=== PATIENT | male | born 1965 | race Caucasian/White ===

== ENCOUNTER → 2017-09-13 08:11 | Outpatient (CLI) | payer OTHER, SELFPAY ==
[2017-09-13 10:22] LABS: Hemoglobin A1C 9.9 % (0.0-7.0)
[2017-09-13 10:33] LABS: Alanine Aminotransferase 39 U/L (12-78); Albumin Level 4.1 gm/dL (3.4-5.0); Albumin/Globulin Ratio 1.6 (1.1-1.8); Alkaline Phosphatase 71 U/L (46-116); Anion Gap 13.5 mEq/L (5-15); Aspartate Amino Transferase 20 U/L (15-37); Bilirubin,Total 0.6 mg/dL (0.2-1.0); Blood Urea Nitrogen 13 mg/dL (7-18); Calcium 8.9 mg/dL (8.5-10.1); Carbon Dioxide 28 mmol/L (21.0-32.0); Chloride 104 mmol/L (98-107); Chol/HDL Ratio 4.8 (1-3.5); Cholesterol 177 mg/dL (140-200); Creatinine,Serum 0.81 mg/dL (0.70-1.30); Estimated Glomerular Filt Rate > 60 ml/min (>60); GFR (African American) > 60 ML/MIN (>60); Globulin 2.5 gm/dl (1.3-3.2); Glucose 248 mg/dL (74-106); HDL Cholesterol 37 mg/dL (27-67); LDL Cholesterol 90 mg/dL (0-130); Potassium 4.5 mmoL/L (3.5-5.1); Sodium 141 mmol/L (136-145); Total Protein,Serum 6.6 gm/dL (6.4-8.2); Triglycerides 250 mg/dL (30-200); VLDL Cholesterol 50 mg/dL (0-40)
[2017-09-16 13:37] LABS: Vitamin D 25 Hydroxy 18.4 ng/mL (30.0-100.0)
== END ==
PROVIDERS: PCP Physician Assistant; Visit Provider Physician Assistant
DX: E11.9 Type 2 diabetes mellitus without complications (principal); I10 Essential (primary) hypertension; E55.9 Vitamin D deficiency, unspecified; E78.2 Mixed hyperlipidemia
CPT/HCPCS: 36415; 80053; 80061; 82652; 83036

== ENCOUNTER → 2018-06-09 14:11 | Outpatient (CLI) | payer OTHER, SELFPAY ==
--- NOTE | 2018-06-09 14:22 | US_ITS ---
US scrotum HISTORY: Scrotal abscess ITS.REASON: ACROTAL ABSCESS ORDERING PHYSICIAN: Saurav Moya MD PATIENT AGE: 53 years Comparison: None FINDINGS: The right testicle has an unremarkable appearance at 4.5 x 2.7 x 3 cm. Blood flow is present. No testicular mass. The epididymis has an unremarkable appearance. The left testicle measures 5.3 x 2.7 x 3.7 cm and has an unremarkable appearance. No mass evident. There is blood flow. Unremarkable appearing epididymis. There is a palpable abnormality superior scrotal region on the right in the subcutaneous region. This measures approximately 1.8 x 1.5 cm and demonstrates heterogeneous echogenicity with small amount of fluid/edema adjacent to this area. This may represent a scrotal carbuncle/small abscess. IMPRESSION: 1. Focal subcutaneous heterogeneous area of echogenicity corresponding to the palpable abnormality in the superior right scrotal region suggesting a scrotal carbuncle/small abscess 2. Unremarkable appearing testicles
== END ==
PROVIDERS: PCP Family Medicine; Visit Provider Family Medicine
DX: N49.2 Inflammatory disorders of scrotum (principal)
CPT/HCPCS: 76870

== ENCOUNTER → 2018-06-10 14:57 | Outpatient (CLI) | payer OTHER, SELFPAY ==
[2018-06-10 15:21] LABS: Basophils # 0.1 K/mm3 (0-0.2); Basophils % 0.8 % (0.1-2.0); Eosinophils # 0.4 K/mm3 (0.0-0.4); Eosinophils % 4.7 % (0.1-12.0); Hemoglobin 13.6 g/dL (14.1-18.0); Lymphocytes # 2.5 K/mm3 (0.7-4.5); Lymphocytes % 33.9 K/mm3 (10-50); Mean Corpuscular HGB Conc 33.1 g/dL (31.8-35.4); Mean Corpuscular Hemoglobin 27.4 pg (27.0-31.2); Mean Corpuscular Volume 82.8 fl (80-94); Mean Platelet Volume 7.1 fl (7.4-10.4); Monocytes # 0.4 K/mm3 (0.1-1.0); Monocytes % 5.6 % (1.7-9.3); Neutrophils # 4.1 K/mm3 (1.8-7.8); Platelet Count 266 K/mm3 (142-424); Red Blood Count 4.95 M/mm3 (4.60-6.20); Red Cell Distribution Width 12.7 % (11.5-17.5); White Blood Count 7.4 K/mm3 (4.8-10.8)
[2018-06-10 16:16] LABS: Anion Gap 10.8 mEq/L (5-15); Blood Urea Nitrogen 15 mg/dL (7-18); Calcium 9.5 mg/dL (8.5-10.1); Carbon Dioxide 30 mmol/L (21.0-32.0); Chloride 103 mmol/L (98-107); Creatinine,Serum 0.92 mg/dL (0.70-1.30); Estimated Glomerular Filt Rate 86 ml/min (>60); GFR (African American) 104 ML/MIN (>60); Glucose 200 mg/dL (74-106); Potassium 4.8 mmoL/L (3.5-5.1); Sodium 139 mmol/L (136-145)
== END ==
PROVIDERS: PCP Family Medicine; Visit Provider Surgery
DX: N49.2 Inflammatory disorders of scrotum (principal)
CPT/HCPCS: 36415; 80048; 85025; 93005

== ENCOUNTER → 2019-02-05 13:11 | Outpatient (CLI) | payer OTHER, SELFPAY ==
--- NOTE | 2019-02-05 13:14 | CA_ITS ---
PROCEDURE: 2-D M-mode and color Doppler study INDICATIONS FOR THE TEST: Chest pain + COPD Heart Murmur+ Tobacco Smoking Palpitations Fatigue Syncope Edema Hypertension+Diabetes Mellitus+ Rheumatic Fever SOB+TORRES Obesity Hyperlipidemia+ Family History HD Additional History CAD,GERD,STENTS PATIENT INFORMATION HEIGHT: 71 WEIGHT:246 GENDER: Male B/P:117/93 2-D/M-MODE INTERPRETATION: 2-D MEASUREMENTS OBSERVED VALUES IN CMS Right Ventricular Dimension (RVDd) 3.2 Interventricular Septum (Thickness)(IVsd) 1.2 Left Ventricular Internal Dimensions(LVIDd) 5.1 Left Ventricular Posterior Wall (Thickness)(LVPWd) 1.2 Aortic Root 2.8 Aortic Cusp Separation 1.3 Left Atrial Dimensions (LAD) 3.4 2D 1. Left atrium is mildly enlarged, left ventricle is normal size, mild concentric left ventricular hypertrophy, visually estimated ejection fraction 55% with no regional wall motion abnormality. 2. The right atrium and right ventricle are mildly enlarged with normal contractility. 3. The aortic valve is thickened and gastritis leaflet continue to display mobility. 4. The mitral and tricuspid valve leaflets are minimally thickened. 5. The pulmonic valve is poorly visualized. 6. No significant pericardial effusion noted. DOPPLER INTERROGATION: Doppler interrogation of the aortic, mitral and tricuspid valvular presence of mild mitral and tricuspid regurgitation, tricuspid regurgitation jet velocity is inadequate for calculation of the right ventricular systolic pressure, grade 1 diastolic dysfunction seen without tissue Doppler evidence of raised left atrial pressure. CONCLUSION: 1. Mild biatrial enlargement, normal left ventricular size, mild concentric left ventricular hypertrophy, visually estimated ejection fraction 55% with no regional wall motion abnormality, grade 1 diastolic dysfunction seen without tissue Doppler evidence of raised left atrial pressure. 2. Mildly enlarged right ventricle with normal contractility. 3. Mild mitral and tricuspid regurgitation 4. No significant pericardial effusion noted.
== END ==
PROVIDERS: PCP Family Medicine; Visit Provider Internal Medicine
DX: I25.10 Atherosclerotic heart disease of native coronary artery without angina pectoris (principal); R06.02 Shortness of breath
CPT/HCPCS: 93306

== ENCOUNTER → 2019-03-13 08:03 | Outpatient (CLI) | payer OTHER, SELFPAY ==
[2019-03-13 09:10] LABS: Hemoglobin A1C 9.9 % (0.0-7.0)
[2019-03-13 14:37] LABS: Alanine Aminotransferase 35 U/L (12-78); Albumin Level 3.8 gm/dL (3.4-5.0); Albumin/Globulin Ratio 1.4 (1.1-1.8); Alkaline Phosphatase 61 U/L (46-116); Anion Gap 13.4 mEq/L (5-15); Aspartate Amino Transferase 14 U/L (15-37); Bilirubin,Total 0.7 mg/dL (0.2-1.0); Blood Urea Nitrogen 19 mg/dL (7-18); Calcium 8.6 mg/dL (8.5-10.1); Carbon Dioxide 26 mmol/L (21.0-32.0); Chloride 105 mmol/L (98-107); Cholesterol 151 mg/dL (140-200); Creatinine,Serum 0.84 mg/dL (0.70-1.30); Estimated Glomerular Filt Rate 96 ml/min (>60); GFR (African American) 116 ML/MIN (>60); Globulin 2.7 gm/dl (1.3-3.2); Glucose 257 mg/dL (74-106); HDL Cholesterol 30 mg/dL (27-67); LDL Cholesterol 49 mg/dL (0-130); Potassium 4.4 mmoL/L (3.5-5.1); Prostate Specific Ag Screen 2.2 ng/mL (0.0-4.0); Sodium 140 mmol/L (136-145); Total Protein,Serum 6.5 gm/dL (6.4-8.2); Triglycerides 358 mg/dL (30-200); VLDL Cholesterol 72 mg/dL (0-40)
== END ==
PROVIDERS: Visit Provider Physician Assistant
DX: E78.2 Mixed hyperlipidemia (principal); E11.9 Type 2 diabetes mellitus without complications; E55.9 Vitamin D deficiency, unspecified; I10 Essential (primary) hypertension; Z12.5 Encounter for screening for malignant neoplasm of prostate; Z79.84 Long term (current) use of oral hypoglycemic drugs
CPT/HCPCS: 36415; 80053; 80061; 82652; 83036; G0103

== ENCOUNTER → 2019-04-26 16:15 | Outpatient (CLI) | payer OTHER, SELFPAY ==
--- NOTE | 2019-04-26 16:21 | XR_ITS ---
PROCEDURE: XR LUMBAR SPINE MIN 4V CLINICAL INDICATION: SCIATICA OF LT SIDE COMPARISON: LS5 LUMBAR SPINE 5 VIEWS from 10/04/2014 FINDINGS: Normal alignment. No fracture or dislocation. Scattered endplate osteophytes. Generalized vascular calcification. IMPRESSION: No acute finding with no change from 10/04/2014 Dictated by: Mk Bal MD 04/26/2019 19:20 Signed by: <Electronically signed by Mk Bal MD in [place]> 04/26/2019 19:20
== END ==
LOC: RAD 16:16
PROVIDERS: PCP Family Medicine; Visit Provider Family Medicine
DX: M54.32 Sciatica, left side (principal)
CPT/HCPCS: 72110

== ENCOUNTER → 2019-07-03 09:02 | Outpatient (CLI) | payer OTHER, SELFPAY ==
[2019-07-03 10:32] LABS: Hemoglobin A1C 10.7 % (0.0-7.0)
[2019-07-03 10:45] LABS: Alanine Aminotransferase 28 U/L (12-78); Albumin Level 3.9 gm/dL (3.4-5.0); Albumin/Globulin Ratio 1.3 (1.1-1.8); Alkaline Phosphatase 70 U/L (46-116); Anion Gap 11.5 mEq/L (5-15); Aspartate Amino Transferase 9 U/L (15-37); Bilirubin,Total 0.6 mg/dL (0.2-1.0); Blood Urea Nitrogen 13 mg/dL (7-18); Carbon Dioxide 27 mmol/L (21.0-32.0); Chloride 101 mmol/L (98-107); Chol/HDL Ratio 6.4 (1-3.5); Cholesterol 198 mg/dL (140-200); Creatinine,Serum 0.78 mg/dL (0.70-1.30); Estimated Glomerular Filt Rate 104 ml/min (>60); GFR (African American) 126 ML/MIN (>60); Glucose 293 mg/dL (74-106); HDL Cholesterol 31 mg/dL (27-67); Potassium 4.5 mmoL/L (3.5-5.1); Sodium 135 mmol/L (136-145); Total Protein,Serum 6.9 gm/dL (6.4-8.2)
[2019-07-03 10:48] LABS: Triglycerides 457 mg/dL (30-200)
[2019-07-06 12:55] LABS: Vitamin D 25 Hydroxy 17.9 ng/mL (30.0-100.0)
== END ==
LOC: LAB 09:02
PROVIDERS: Visit Provider Physician Assistant
DX: E78.2 Mixed hyperlipidemia (principal); E55.9 Vitamin D deficiency, unspecified; I10 Essential (primary) hypertension; E11.9 Type 2 diabetes mellitus without complications
CPT/HCPCS: 36415; 80053; 80061; 82652; 83036

== ENCOUNTER → 2019-11-17 10:13 | Outpatient (CLI) | payer OTHER, SELFPAY ==
--- NOTE | 2019-11-17 10:17 | XR_ITS ---
PROCEDURE: XR CHEST 2V CLINICAL HISTORY: RT RIB CONTUSION Pain, injury with pain COMPARISON: CXR CHEST(2 VIEWS-NOT PORTABLE) from 10/04/2014 FINDINGS: The cardiomediastinal silhouette and pulmonary vascularity are within normal limits. The lungs are clear without infiltrates, suspicious nodules, or pleural effusions. Mild degenerative changes in the thoracic spine IMPRESSION: No acute findings. Dictated by: Mk Bal MD 11/17/2019 12:09 Electronically signed by Mk Bal MD in [place] 11/17/2019 12:09
--- NOTE | 2019-11-17 10:17 | XR_ITS ---
PROCEDURE: XR RIBS RT 2V CLINICAL INDICATION: RT RIB CONTUSION Right-sided rib pain following injury COMPARISON: XR CHEST 2V from 11/17/2019 FINDINGS: No fracture or dislocation. No lytic or blastic change. Consider follow-up exam in 7-[address] with 3D reformats if pain persists IMPRESSION: No acute findings. Dictated by: Mk Bal MD 11/17/2019 12:09 Electronically signed by Mk Bal MD in [place] 11/17/2019 12:09
== END ==
LOC: RAD 10:15
PROVIDERS: PCP Family Medicine; Visit Provider Family Medicine
DX: S20.211A Contusion of right front wall of thorax, initial encounter (principal)
CPT/HCPCS: 71046; 71100

== ENCOUNTER → 2020-02-09 06:43 | Outpatient (CLI) | payer OTHER, SELFPAY ==
--- NOTE | 2020-02-09 06:44 | CA_ITS ---
APPROVED REPORT EXAM: Comprehensive 2D, Doppler, and color-flow Echocardiogram Emergency Medical Tech: Jeanne White RVT Ht: 5 ft 11 in Wt: 257lbs BSA: 2.35 BP: 136/83 mmHg Indications: CP,SOA,CAD,STENTS,HLD,HTN 2D Dimensions LVOT 2.23 cm (M/F) 1.5-2.5 M-Mode Dimensions RVDd 2.73 cm (0.9-2.6) LVDd 4.86 cm (3.5-5.7) LVDs 3.30 cm (3.5-5.7) IVSd 1.48 cm (0.6-1.1) PWd 0.83 cm (0.6-1.1) EF (Teich) 60.20% FS 32.10% EDV (Teich) 110.70 mL ESV (Teich) 44.10 mL LV Diastology E/A Ratio 1.16 Mitral Valve MV A Velocity 72.00 (40-130 cm/s) Left Ventricle Left atrium is mildly enlarged, left ventricle is normal size, mild concentric left ventricular hypertrophy, visually estimated ejection fraction 55% with no regional wall motion abnormality. Diastolic parameters are inconclusive. Right Ventricle Right atrium and right ventricle are mildly enlarged with normal contractility. Aortic Valve Aortic valve is minimally thickened and fibrosed, there is no aortic stenosis or aortic insufficiency. Mitral Valve Mitral valve is grossly normal, there is no mitral stenosis, there is mild mitral regurgitation. Tricuspid Valve Tricuspid valve is grossly normal, there is mild tricuspid regurgitation. Pulmonic Valve Pulmonic valve is poorly visualized. Great Vessels Root is normal size. Pericardium No significant pericardial effusion noted. Conclusion 1. Mild biatrial enlargement, normal left ventricular size, mild concentric left ventricular hypertrophy, visually estimated ejection fraction 55% with no regional wall motion abnormality, diastolic parameters are inconclusive. 2. Mildly enlarged right ventricle with normal contractility. 3. Mild mitral and tricuspid regurgitation. 4. No significant pericardial effusion noted. Electronically signed by : Brenton Orozco, 02/10/2020 11:41:16
--- NOTE | 2020-02-09 06:44 | CA_ITS ---
APPROVED REPORT Exam: Exercise Treadmill Technologist: Anushka Restrepo, Ht: 5 ft 11 in Wt: 255 lbs BSA: 2.34 m2 BP: 132/82 mmHg Indications: Chest pain Medical History Medications: Lipitor, Carvedilol, Combivent, Hydroxyzine, Baclofen, Metformin, Gabapentin, Nitro, Tramadol, Isosorbide, Asa Allergies: Levofloxacin Cardiac Risk Factors: HTN, Hyperlipidemia, Diabetes (non-insulin) Stress Test Details Test: Alejandro HR Resting HR: 91 bpm Max Heart Rate (APMHR): 166 bpm Max HR Achieved: 155 bpm Target HR (85% APMHR): 141 bpm % of APMHR: 93 Recovery HR: 136 bpm BP Resting BP: 132/82 mmHg Max BP: 187/94 mmHg Recovery BP: 152.0/78.0 mmHg ECG Resting ECG: NSR Clinical Exercise duration: 08:31 min Highest Stage Achieved: Stage 3: 3.4 mph at 14% grade. Exercise capacity: 10.1 METs Stress ECG Conclusion C/O chest pressure radiating to left scapula. Rare PVC. 0.5-0.75mm of horizontal and slightly upsloping ST depression inferiorly. CP with exercise. within normal EKG. Images reported separtely. Test Summary REST . . . . . . . Resting REST . . . . . . . Standing REST 02:54 0.0 0.0 91 . 132/ 82 . . Stage 1 01:00 10.0 1.7 110 . . . . Stage 1 02:00 10.0 1.7 119 . . . . Stage 1 03:00 10.0 1.7 120 . 154/ 80 . . Stage 2 01:00 12.0 2.5 124 . . . . Stage 2 02:00 12.0 2.5 128 . . . . Stage 2 03:00 12.0 2.5 132 . 164/ 80 . . Stage 3 01:00 14.0 3.4 141 . . . . Stage 3 . . . . . . . Cardiolite injected Stage 3 02:00 14.0 3.4 149 . . . . Stage 3 . . . . . . . chest tightness Stage 3 02:31 14.0 3.4 152 . . . Stop exercise at 08:31 RECOVERY 01:00 0.0 0.0 136 . . . . RECOVERY 02:00 0.0 0.0 112 . . . . RECOVERY 03:00 0.0 0.0 101 . 187/ 94 . . RECOVERY 04:00 0.0 0.0 100 . 152/ 78 . . RECOVERY 05:00 0.0 0.0 98 . 152/ 78 . . RECOVERY 06:00 0.0 0.0 98 . 145/ 74 . . RECOVERY 06:01 0.0 0.0 98 . 145/ 74 . . Electronically signed by : Brenton Orozco, 02/10/2020 09:31:49
--- NOTE | 2020-02-09 06:44 | NM_ITS ---
APPROVED REPORT Exam: Nuclear Stress Test Indication: Chest pain, SOB, HTN, CAD, DM, High cholesterol, Former tobacco use, Family history Patient Location: Outpatient Stress Tech: Anushka Restrepo [place] Tech:Avril Wright, ARRT, RT (R)(N) Ht: 5 ft 11 in Wt: 250 lbs HR: 79 bpm BP: 132/82 mmHg BSA: 2.32 m2 BMI: 34.8 History: Chest pain, SOB, HTN, CAD, DM, High cholesterol, Former tobacco use, Family history Procedure: Patient exercised on Alejandro protocol 7:30 minutes and sec, resting heart rate 79 bpm, resting blood pressure 132/82 mmHg, with exercise maximum heart rate achived was 152 bpm which is Greater than 85 % of the maximum predicted heart rate and blood pressure was 187/94 mmHg. Test was stopped due to SOA and fatigue. Patient has Good exercise capacity, achieved 10.1 METs of workload on treadmill, the blood pressure response to exercise was Adequate. Electrocardiogram Resting electrocardiogram showed sinus rhythm, with exercise there is less than 1.[address] segment depression noted from the baseline EKG. The EKG portion of the exercise Myoview is negative for ischemia. Cardiac Stress and Resting SPECT Images: Cardiac Stress and Resting SPECT images were obtained using technetium 99m Myoview 31.8 mCi stress and 10.21 mCi at rest. Gated SPECT with analysis of segmental wall motion and calculation of ejection fraction also done. Cardiac stress and resting SPECT images show uniform myocardial activity without segmental perfusion abnormality, computer derived ejection fraction is 62% with no regional wall motion abnormality, right ventricle is normal size and contractility. Conclusion: 1. The EKG portion of the exercise Myoview is negative for ischemia, patient has good exercise capacity achieved 10.1 mets of workload on treadmill, the blood pressure response to exercise was adequate, test was stopped due to shortness of breath and chest tightness. 2. No scintigraphic evidence of reversible ischemia seen at this level of exercise, computer derived ejection fraction is 62% with no regional wall motion abnormality, right ventricle is normal size and contractility. 3. Myocardial perfusion imaging although patient complained of chest tightness with peak exercise relieved with rest, there were no significant EKG changes or perfusion imaging to suggest provokable ischemia. Electronically signed by : Brenton Orozco 02/10/2020 09:36:10
--- NOTE | 2020-02-09 07:08 | HMH.ITSHM ---
Current Home Medications as stated by this patient Yanet Calle or mechanical service representative. [TRAMADOL NITRO METFORMIN ISOSOROBIDE IPRATROPIUM INSULIN ASA HYDROXYZINE GABAPENTIN COENZYME CARVEDILOL BACLOFEN ATORVASTATIN
== END ==
PROVIDERS: PCP Family Medicine; Visit Provider Urology
DX: I20.9 Angina pectoris, unspecified (principal); R06.02 Shortness of breath; E78.5 Hyperlipidemia, unspecified; I10 Essential (primary) hypertension
CPT/HCPCS: 78452; 93017; 93306; A9502

== ENCOUNTER → 2020-03-28 13:32 | Outpatient (CLI) | payer OTHER, SELFPAY ==
--- NOTE | 2020-03-28 13:37 | US_ITS ---
PROCEDURE: US KIDNEY CLINICAL INDICATION: FLANK PAIN COMPARISON: No exams were available for comparison FINDINGS: The right kidney is [id number]. No hydronephrosis, cortical thinning, or renal mass or perinephric fluid collection is evident. The left kidney is [id number]. No hydronephrosis, cortical thinning, or renal mass or perinephric fluid collection is evident. IMPRESSION: Unremarkable bilateral renal ultrasound Dictated by: Mk aBl MD 03/28/2020 14:32 Electronically signed by Mk Bal MD in [place] 03/28/2020 14:32
== END ==
LOC: RAD 13:33
PROVIDERS: PCP Family Medicine; Visit Provider Family Medicine
DX: R10.9 Unspecified abdominal pain (principal)
CPT/HCPCS: 76770

== ENCOUNTER → 2021-01-13 10:30 | Outpatient (CLI) | payer OTHER, SELFPAY | PROVIDERS: Visit Provider Internal Medicine Pulmonary Disease | DX: R06.02 Shortness of breath (principal) ==

== ENCOUNTER 2021-05-09 07:50 | Outpatient (CLI) | payer OTHER, SELFPAY ==
[2021-05-09] VITALS (7 sets, daily range): BP systolic 113–122; BP diastolic 72–86; PULSE 84–88; RESP 18–20; TEMP 36.9–37; O2SAT 93–95
== END 2021-05-09 10:16 | disposition home or self-care (01) ==
PROVIDERS: PCP Family Medicine; Visit Provider Family Medicine
DX: U07.1 COVID-19 (principal)
CPT/HCPCS: 96365

== ENCOUNTER → 2021-07-30 07:41 | Outpatient (CLI) | payer OTHER, SELFPAY ==
[2021-07-30 08:45] LABS: Alanine Aminotransferase 16 U/L (12-78); Albumin Level 4.4 g/dl (3.5-5.0); Alkaline Phosphatase 86 U/L (38-126); Aspartate Amino Transferase 20 U/L (17-59); Bilirubin,Direct 0.3 mg/dl (0.0-0.4); Bilirubin,Indirect 0.3 mg/dL (0.0-0.9); Bilirubin,Total 0.6 mg/dl (0.2-1.3); Bilirubin,Unconjugated 0.3 mg/dL (0.0-1.1); Chol/HDL Ratio 6.9 (1-3.5); Cholesterol 199 mg/dl (140-200); HDL Cholesterol 29 mg/dl (40-60); Total Protein,Serum 6.8 g/dl (6.3-8.2)
[2021-07-30 08:54] LABS: Triglycerides 1217 mg/dl (30-150)
[2021-07-30 08:56] LABS: Direct LDL Cholesterol 33.38 mg/dL (100-129)
== END ==
LOC: LAB 07:44
PROVIDERS: Visit Provider Urology
DX: R06.02 Shortness of breath (principal); R07.9 Chest pain, unspecified; I20.9 Angina pectoris, unspecified; I10 Essential (primary) hypertension; E78.5 Hyperlipidemia, unspecified; F32.9 Major depressive disorder, single episode, unspecified
CPT/HCPCS: 36415; 80061; 80076

== ENCOUNTER → 2021-07-31 07:14 | Outpatient (CLI) | payer OTHER, SELFPAY ==
[2021-07-31 09:03] LABS: Alanine Aminotransferase 9 U/L (12-78); Albumin Level 4.5 g/dl (3.5-5.0); Albumin/Globulin Ratio 1.7 (1.1-1.8); Alkaline Phosphatase 83 U/L (38-126); Anion Gap 11.2 mEq/L (5-15); Aspartate Amino Transferase 21 U/L (17-59); Bilirubin,Total 0.5 mg/dl (0.2-1.3); Blood Urea Nitrogen 17 mg/dl (9-20); Calcium 9.6 mg/dl (8.4-10.2); Carbon Dioxide 30 mmol/L (22.0-30.0); Chloride 104 mmol/L (98-107); Chol/HDL Ratio 6.9 (1-3.5); Cholesterol 201 mg/dl (140-200); Estimated Glomerular Filt Rate 100 ml/min (>60); GFR (African American) 121 ML/MIN (>60); Globulin 2.6 g/dL (1.3-3.2); Glucose 295 mg/dl (74-100); HDL Cholesterol 29 mg/dl (40-60); Potassium 5.2 mmoL/L (3.5-5.1); Sodium 140 mmol/L (136-145); Total Protein,Serum 7.1 g/dl (6.3-8.2)
[2021-07-31 09:11] LABS: Triglycerides 1384 mg/dl (30-150)
[2021-07-31 09:15] LABS: Direct LDL Cholesterol < 30.00 mg/dL (100-129)
[2021-07-31 09:33] LABS: Prostate Specific Ag Screen 1.7 ng/ml (0.0-4.0)
== END ==
LOC: LAB 07:15
PROVIDERS: Visit Provider Family Medicine
DX: I10 Essential (primary) hypertension (principal); E11.9 Type 2 diabetes mellitus without complications; E78.49 Other hyperlipidemia; Z12.5 Encounter for screening for malignant neoplasm of prostate; Z79.4 Long term (current) use of insulin
CPT/HCPCS: 36415; 80053; 80061; G0103

== ENCOUNTER → 2021-11-09 07:24 | Outpatient (CLI) | payer OTHER, SELFPAY ==
--- NOTE | 2021-11-09 07:50 | XR_ITS ---
FINAL REPORT CLINICAL HISTORY: CHEST PAIN COMPARISON: 11/17/2019 FINDINGS: Two views of the chest were obtained. The heart size and pulmonary vascularity are within normal limits. The mediastinum is normal. No acute pulmonary abnormality is identified. There is no pneumothorax. The bony thorax is intact. IMPRESSION: No active cardiopulmonary disease. Reviewed, Interpreted and Dictated by Keith Dickey III, MD Transcribed by Heather Cheema Authenticated by Keith Dickey III, MD on 11/09/2021 08:46:40 AM [facility]
[2021-11-09 08:29] LABS: Hemoglobin A1C 8.4 % (4.0-6.0)
[2021-11-09 08:42] LABS: Alanine Aminotransferase 20 U/L (12-78); Albumin Level 4.3 g/dl (3.5-5.0); Alkaline Phosphatase 71 U/L (38-126); Anion Gap 9.8 mEq/L (5-15); Aspartate Amino Transferase 21 U/L (17-59); Bilirubin,Total 0.7 mg/dl (0.2-1.3); Blood Urea Nitrogen 13 mg/dl (9-20); Calcium 9.3 mg/dl (8.4-10.2); Carbon Dioxide 30 mmol/L (22.0-30.0); Chloride 104 mmol/L (98-107); Chol/HDL Ratio 4.4 (1-3.5); Cholesterol 146 mg/dl (140-200); Estimated Glomerular Filt Rate 100 ml/min (>60); GFR (African American) 121 ML/MIN (>60); Globulin 2.2 g/dL (1.3-3.2); Glucose 250 mg/dl (74-100); HDL Cholesterol 33 mg/dl (40-60); Potassium 4.8 mmoL/L (3.5-5.1); Sodium 139 mmol/L (136-145); Total Protein,Serum 6.5 g/dl (6.3-8.2)
[2021-11-09 08:59] LABS: 25-OH Vitamin D, Total 23.4 ng/mL (30-100)
[2021-11-09 09:32] LABS: Triglycerides 453 mg/dl (30-150)
== END ==
LOC: RAD 07:29
PROVIDERS: PCP Physician Assistant; Visit Provider Physician Assistant
DX: R07.9 Chest pain, unspecified (principal); I10 Essential (primary) hypertension; E11.9 Type 2 diabetes mellitus without complications; E78.2 Mixed hyperlipidemia; E55.9 Vitamin D deficiency, unspecified; Z79.4 Long term (current) use of insulin
CPT/HCPCS: 36415; 71046; 80053; 80061; 82306; 83036

== ENCOUNTER → 2021-11-19 06:16 | Outpatient (CLI) | payer OTHER, SELFPAY ==
--- NOTE | 2021-11-19 | CA_ITS ---
APPROVED REPORT Exam: Pharmacologic Technologist: Loli Mariee Ht: 5 ft 1 in Wt: 240 lbs BSA: 2.04 m2 HR: 79 bpm BP: 129/86 mmHg Indications: Chest pain Medical History Medications: Aspirin,,,,, Fish Oil,,,,, Vitamin D3,,,,, Atorvastatin,,,,, Carvedilol,,,,, Tramadol,,,,, FeNOfibrate,,,,, Baclofen,,,,, Sertraline,,,,, Co Q10,,,,, Resuvastatin,,,,, EMpagliflozin,,,,, Stress Test Details Test: LEXISCAN HR Resting HR: 80 bpm Max Heart Rate (APMHR): 164.456786 bpm Max HR Achieved: 98 bpm Target HR (85% APMHR): 139.703328 bpm % of APMHR: 59.76 Recovery HR: 81 bpm BP Resting BP: 129.0/86.0 mmHg Max BP: 143.0/86.0 mmHg Recovery BP: 127.0/83.0 mmHg ECG Clinical Exercise duration: 04:01 min Highest Stage Achieved: Exercise capacity: 1.0 METs Stress ECG Conclusion Symptoms: Shortness of air with Lexiscan. Nausea noted. Arrhythmias/Ectopy: None ST-T Changes: < 1.[address] segment changes. Electronically signed by : Brenton Orozco MD 11/19/2021 19:02:30
--- NOTE | 2021-11-19 06:25 | NM_ITS ---
APPROVED REPORT Exam: Nuclear Stress Test Indication: Chest pain, SOB, CAD, HTN, DM, High cholesterol, Former tobacco use, Family history Patient Location: Outpatient Stress Tech: Loli Mariee [place] Tech:Avril Wright, ARRT, RT (R)(N) Ht: 5 ft 11 in Wt: 240 lbs HR: 79 bpm BP: 129/86 mmHg BSA: 2.28 m2 BMI: 33.4 History: Chest pain, SOB, CAD, HTN, DM, High cholesterol, Former tobacco use, Family history Procedure: Patient received a 0.4 mg of intravenous Lexiscan, resting heart rate 79 bpm, resting blood pressure 129/86 mmHg, with Lexiscan maximum heart rate achived was 93 bpm which is Less than 85 % of the maximum predicted heart rate and blood pressure was 143/86 mmHg. With Lexiscan, patient denied any complaint of chest pain. Electrocardiogram Electrocardiogram shows sinus rhythm, with Lexiscan there is less than 1.[address] segment depression noted from the baseline EKG. The EKG portion of the Lexiscan is nondiagnostic. Cardiac Stress and Resting SPECT Images: Cardiac Stress and Resting SPECT images were obtained using technetium 99m Myoview 31.2 mCi stress and 10.83 mCi at rest. Gated SPECT for analysis of segmental wall motion and calculation of the ejection fraction also done. Cardiac stress and rest SPECT may show mild fixed defect in the anterior wall with normal raghu gated SPECT is likely secondary to soft tissue attenuation, no reversible ischemia seen, computer derived ejection fraction is 61% with no regional wall motion abnormality, right ventricle is normal size and contractility. Conclusion: 1. The EKG portion of the Lexiscan is nondiagnostic. 2. No scintigraphic evidence of reversible ischemia seen, computer derived ejection fraction is 61% with no regional wall motion abnormality, right ventricle is normal size and contractility. 3. Likely normal Lexiscan Myoview study. Electronically signed by : Brenton Orozco MD 11/19/2021 19:12:31
--- NOTE | 2021-11-19 08:12 | CA_ITS ---
APPROVED REPORT EXAM: Comprehensive 2D, Doppler, and color-flow Echocardiogram Child Life Therapist: Jeanne White RVT Ht: 5 ft 11 in Wt: 240lbs BSA: 2.28 BP: 134/76 mmHg Indications: SOA,CP,CAD,HX COVID 05/29,HTN,HLD TDS 2D Dimensions LVOT 2.22 cm (M/F) 1.5-2.5 LA Volume 28.40 mL LA Volume Index 12.45 mL/m2 (M/F) 16-34 M-Mode Dimensions RVDd 2.97 cm (0.9-2.6) LA Diam 3.92 cm (1.9-4.0) LVDd 4.55 cm (3.5-5.7) Ao Diam 3.07 cm (2.0-3.7) LVDs 3.14 cm (3.5-5.7) IVSd 1.57 cm (0.6-1.1) PWd 0.76 cm (0.6-1.1) EF (Teich) 58.80% FS 31.00% EDV (Teich) 94.90 mL TAPSE 2.04 (<1.7) ESV (Teich) 39.10 mL LV Diastology E Decel Time 183.00 (160-240 msec) E/A Ratio 1.2 MED E' 6.60 (< 7 cm/sec) E'/MED E' Ratio 13.47 (>14) LAT E' 11.00 (<10 cm/sec) E/LAT E' Ratio 8.08 (>14) Aortic Valve AO Peak GR. 7.00 mmHg Mitral Valve MV E Max Timi. 89.00 (40-130 cm/s) MV A Velocity 73.00 (40-130 cm/s) E/A Ratio 1.23 MV Decel. Time 183.00 (160-240 ms) MV PHT 54.00 ms Pulmonary Valve PV Peak Velocity 84.00 (50-150 cm/s) Tricuspid Valve TR P. Velocity 183.00 cm/s RAP Estimate 10.00 mmHg RVSP 23.30 mmHg Left Ventricle Atrium is mildly large, left ventricle is normal size, mild concentric left ventricular hypertrophy, visually estimated ejection fraction 55% with no regional wall motion abnormality, diastolic parameters are inconclusive. Right Ventricle Right atrium and right ventricle are mildly enlarged with normal contractility. Aortic Valve Aortic valve is minimally thickened and fibrosed, there is no aortic stenosis or aortic insufficiency. Mitral Valve Mitral valve grossly normal, there is trace mitral regurgitation. Tricuspid Valve Tricuspid grossly normal, there is trace tricuspid regurgitation, tricuspid regurgitation jet velocity is inadequate for calculation of the right ventricular systolic pressure. Pulmonic Valve Pulmonic valve is poorly visualized. Great Vessels Aortic root is normal size. Inferior vena cava is poorly visualized. Pericardium No significant pericardial effusion noted. Conclusion 1. Mild biatrial alignment, normal left ventricular size, mild concentric left ventricular hypertrophy, visually estimated ejection fraction 55% with no regional wall motion abnormality, diastolic parameters are inconclusive. 2. Mildly enlarged right ventricle with normal contractility. 3. Trace mitral and tricuspid regurgitation. 4. No significant pericardial effusion. 5. Inferior vena cava is poorly visualized. Electronically signed by : Brenton Orozco MD 11/19/2021 19:52:21
--- NOTE | 2021-11-19 08:23 | HMH.ITSHM ---
Current Home Medications as stated by this patient Yanet Calle or specialty sales representative. []TRAMADOL SERTRALINE ROSUVASTATIN RANOLAZINE OMEGA 3 NITRO ASA METFORMIN ISOSORBIDE IPRATROPIUM INSULIN HYDROXYZINE GABAPENTIN FENOFIBRATE EMPAGLIFLOZIN COQ10 VITAMIN D3 CARVEDILOL ATORVASTATIN
== END ==
LOC: RAD 06:18
PROVIDERS: PCP Physician Assistant; Visit Provider Physician Assistant
DX: R07.9 Chest pain, unspecified (principal)
CPT/HCPCS: 78452; 93017; 93306; A9502; J2785

== ENCOUNTER → 2022-02-13 08:27 | Outpatient (CLI) | payer OTHER, SELFPAY ==
--- NOTE | 2022-02-13 08:30 | XR_ITS ---
PROCEDURE INFORMATION: Exam: XR Right Hand Exam date and time: 02/13/2022 8:38 AM Age: 56 years old Clinical indication: Pain; Hand; Bilateral; Additional info: Hand pain TECHNIQUE: Imaging protocol: XR Right hand. Views: 3 or more views. COMPARISON: No relevant prior studies available. FINDINGS: Bones/joints: There is no evidence of acute fracture.There is no evidence of malalignment or dislocation. Degenerative changes in the IP joint Soft tissues: Normal. IMPRESSION: There is no evidence of acute fracture.There is no evidence of malalignment or dislocation.
--- NOTE | 2022-02-13 08:30 | XR_ITS ---
PROCEDURE INFORMATION: Exam: XR Left Hand Exam date and time: 02/13/2022 8:38 AM Age: 56 years old Clinical indication: Pain; Hand; Bilateral; Additional info: Hand pain TECHNIQUE: Imaging protocol: XR Left hand. Views: 3 or more views. COMPARISON: No relevant prior studies available. FINDINGS: Bones/joints: There is no evidence of acute fracture.There is no evidence of malalignment or dislocation. Soft tissues: Normal. IMPRESSION: There is no evidence of acute fracture.There is no evidence of malalignment or dislocation.
== END ==
LOC: RAD 08:28
PROVIDERS: PCP Family Medicine; Visit Provider Orthopaedic Surgery
DX: G56.03 Carpal tunnel syndrome, bilateral upper limbs (principal)
CPT/HCPCS: 73130

== ENCOUNTER → 2022-02-21 07:13 | Outpatient (CLI) | payer OTHER, SELFPAY ==
[2022-02-21 08:47] LABS: Chloride 104 mmol/L (98-107); Hemoglobin A1C 9.1 % (4.0-6.0); Sodium 140 mmol/L (136-145)
[2022-02-21 08:48] LABS: Potassium 5.3 mmoL/L (3.5-5.1)
[2022-02-21 08:50] LABS: Alanine Aminotransferase 25 U/L (12-78); Albumin Level 4.4 g/dl (3.5-5.0); Albumin/Globulin Ratio 1.8 (1.1-1.8); Alkaline Phosphatase 80 U/L (38-126); Anion Gap 15.3 mEq/L (5-15); Aspartate Amino Transferase 30 U/L (17-59); Bilirubin,Total 0.7 mg/dl (0.2-1.3); Blood Urea Nitrogen 16 mg/dl (9-20); Carbon Dioxide 26 mmol/L (22.0-30.0); Cholesterol 203 mg/dl (140-200); Estimated Glomerular Filt Rate 100 ml/min (>60); GFR (African American) 121 ML/MIN (>60); Globulin 2.4 g/dL (1.3-3.2); Total Protein,Serum 6.8 g/dl (6.3-8.2)
[2022-02-21 08:51] LABS: Calcium 10.5 mg/dl (8.4-10.2); Chol/HDL Ratio 5.6 (1-3.5); Glucose 298 mg/dl (74-100); HDL Cholesterol 36 mg/dl (40-60)
[2022-02-21 08:58] LABS: Triglycerides 666 mg/dl (30-150)
[2022-02-21 09:02] LABS: Direct LDL Cholesterol 50.59 mg/dL (100-129)
[2022-02-21 09:06] LABS: 25-OH Vitamin D, Total 50.1 ng/mL (30-100)
== END ==
PROVIDERS: PCP Family Medicine; Visit Provider Physician Assistant
DX: E78.2 Mixed hyperlipidemia (principal); I10 Essential (primary) hypertension; E11.9 Type 2 diabetes mellitus without complications; E55.9 Vitamin D deficiency, unspecified; Z79.84 Long term (current) use of oral hypoglycemic drugs
CPT/HCPCS: 36415; 80053; 80061; 82306; 83036

== ENCOUNTER → 2022-09-06 15:45 | Outpatient (CLI) | payer OTHER, SELFPAY ==
--- NOTE | 2022-09-06 15:54 | XR_ITS ---
PROCEDURE INFORMATION: Exam: XR Chest Exam date and time: 09/06/2022 4:17 PM Age: 57 years old Clinical indication: Cough; Additional info: Covid SX TECHNIQUE: Imaging protocol: Radiologic exam of the chest. Views: 1 view. COMPARISON: CR XR CHEST 2V 11/09/2021 7:58 AM FINDINGS: Lungs: Hazy right-sided pulmonary opacity with bronchial wall thickening. Pleural spaces: No pneumothorax. Heart/Mediastinum: No cardiomegaly. Bones/joints: No acute abnormality. IMPRESSION: Hazy right-sided pulmonary opacity with bronchial wall thickening which is nonspecific but potentially infectious or inflammatory. Follow-up to radiographic clearance is recommended.
[2022-09-06 16:47] LABS: Coronavirus 19, PCR Not Detected (NotDetected); Influenza A, PCR Not Detected (NotDetected); Influenza B, PCR Not Detected (NotDetected)
== END ==
PROVIDERS: PCP Physician Assistant; Visit Provider Physician Assistant
DX: Z20.822 Contact with and (suspected) exposure to COVID-19 (principal)
CPT/HCPCS: 71045; C9803; U0003; U0005

== ENCOUNTER → 2022-09-18 09:39 | Outpatient (CLI) | payer OTHER, SELFPAY ==
--- NOTE | 2022-09-18 09:43 | XR_ITS ---
FINAL REPORT CLINICAL HISTORY: PNEUMONIA COMPARISON: 09/06/2022 FINDINGS: TWO-VIEW CHEST The heart size is normal. The mediastinum is normal. There are mild right lung opacities which have improved consistent with improved pneumonia. There is no pneumothorax. IMPRESSION: Improved pneumonia. Reviewed, Interpreted and Dictated by Keith Dikcey III, MD Transcribed by Heather Cheema Authenticated and [facility]
== END ==
LOC: RAD 09:40
PROVIDERS: PCP Physician Assistant; Visit Provider Physician Assistant
DX: J18.9 Pneumonia, unspecified organism (principal)
CPT/HCPCS: 71046

== ENCOUNTER → 2022-10-17 07:03 | Outpatient (CLI) | payer OTHER, SELFPAY ==
[2022-10-17 09:06] LABS: Alanine Aminotransferase 18 U/L (12-78); Albumin Level 4.2 g/dl (3.5-5.0); Albumin/Globulin Ratio 1.8 (1.1-1.8); Alkaline Phosphatase 101 U/L (38-126); Anion Gap 13.2 mEq/L (5-15); Aspartate Amino Transferase 23 U/L (17-59); Bilirubin,Total 0.4 mg/dl (0.2-1.3); Blood Urea Nitrogen 15 mg/dl (9-20); Carbon Dioxide 23 mmol/L (22.0-30.0); Chloride 110 mmol/L (98-107); Chol/HDL Ratio 6.4 (1-3.5); Cholesterol 179 mg/dl (140-200); Estimated Glomerular Filt Rate 116 ml/min (>60); GFR (African American) 141 ML/MIN (>60); Globulin 2.3 g/dL (1.3-3.2); Glucose 212 mg/dl (74-100); HDL Cholesterol 28 mg/dl (40-60); Potassium 4.2 mmoL/L (3.5-5.1); Sodium 142 mmol/L (136-145); Total Protein,Serum 6.5 g/dl (6.3-8.2)
[2022-10-17 09:33] LABS: Hemoglobin A1C 8.8 % (4.0-6.0)
[2022-10-17 09:34] LABS: Prostate Specific Ag Screen 1.8 ng/ml (0.0-4.0)
[2022-10-17 09:39] LABS: Direct LDL Cholesterol < 30.00 mg/dL (100-129)
[2022-10-17 10:00] LABS: Triglycerides 1716 mg/dl (30-150)
== END ==
LOC: LAB 07:04
PROVIDERS: PCP Family Medicine; Visit Provider Physician Assistant
DX: E11.42 Type 2 diabetes mellitus with diabetic polyneuropathy (principal); I10 Essential (primary) hypertension; E78.2 Mixed hyperlipidemia; E55.9 Vitamin D deficiency, unspecified; Z79.4 Long term (current) use of insulin; Z12.5 Encounter for screening for malignant neoplasm of prostate
CPT/HCPCS: 36415; 80053; 80061; 82306; 83036; G0103

== ENCOUNTER → 2022-10-30 11:04 | Outpatient (CLI) | payer OTHER, SELFPAY ==
--- NOTE | 2022-10-30 11:15 | XR_ITS ---
FINAL REPORT CLINICAL HISTORY: Rt LBP radiating down Rt leg w numbness/tingling. Pt states he fell & fractured upper t-spine x 16 yrs ago. COMPARISON: 04/26/2019 FINDINGS: LUMBAR SPINE Five views demonstrate no acute fracture. There are mild degenerative changes with osteophytes and facet arthropathy. There is mild chronic wedging of T11. Vascular calcification is identified. There is no malalignment. IMPRESSION: Degenerative and chronic appearing findings, stable from prior. Reviewed, Interpreted and Dictated by Keith Dickey III, MD Transcribed by Heather Cheema Authenticated and [facility]
== END ==
PROVIDERS: PCP Physician Assistant; Visit Provider Physician Assistant
DX: M54.41 Lumbago with sciatica, right side (principal)
CPT/HCPCS: 72110

== ENCOUNTER → 2022-11-13 10:57 | Outpatient (CLI) | payer OTHER, SELFPAY ==
--- NOTE | 2022-11-13 11:02 | MR_ITS ---
FINAL REPORT CLINICAL HISTORY: LOWER BACK PAIN X MANY YEARS FALL AND BROKE UPPER BACK X 16 YEARS AGO NO RECENT INJURY/TRAUMA COMPARISON: none FINDINGS: Multiplanar MR imaging of the lumbar spine was performed without contrast. On the sagittal T2-weighted images, there is disc degeneration throughout. The vertebral alignment is normal. There is no evidence of fracture. No bony mass is identified. The conus has an unremarkable appearance. No significant canal stenosis is identified. There is a 25 mm cyst in the upper sacral spinal canal. L1-2: Annular disc bulge. No significant central canal stenosis or neuroforaminal narrowing. L2-3: Annular disc bulge. No significant central canal stenosis or neuroforaminal narrowing. L3-4: Annular disc bulge. No significant central canal stenosis or neuroforaminal narrowing. L4-5: Annular disc bulge and facet arthropathy. No significant central canal stenosis or neuroforaminal narrowing. L5-S1: No significant central canal stenosis or neuroforaminal narrowing. Note is made of spurring of the SI joints. IMPRESSION: Degenerative disc disease as above. 25 mm cyst upper sacral spinal canal. Reviewed, Interpreted and Dictated by Keith Dickey III, MD Transcribed by Shakira Watson Authenticated and [facility]
== END ==
LOC: RAD 10:58
PROVIDERS: PCP Physician Assistant; Visit Provider Physician Assistant
DX: M54.41 Lumbago with sciatica, right side (principal)
CPT/HCPCS: 72148; 76376

== ENCOUNTER → 2023-01-09 09:06 | Outpatient (CLI) | payer OTHER, SELFPAY ==
--- NOTE | 2023-01-09 09:15 | XR_ITS ---
FINAL REPORT CLINICAL HISTORY: RADICULOPATHY COMPARISON: 10/30/2022 FINDINGS: LUMBOSACRAL SPINE SERIES Five views of the lumbosacral spine were obtained. There is no fracture present. There is no malalignment. There is minimal anterior osteophyte formation at L3-4. There is mild facet sclerosis in the lower lumbar spine. There is a 7 mm radiodensity in the lower pole of the right kidney consistent with kidney stone. IMPRESSION: Right kidney stone. Mild facet hypertrophic changes lower lumbar spine. Reviewed, Interpreted and Dictated by Yoel Nagel MD Transcribed by Shakira Watson Authenticated and [facility]
== END ==
LOC: RAD 09:08
PROVIDERS: PCP Family Medicine; Visit Provider Student in an Organized Health Care Education/Training Program
DX: M54.16 Radiculopathy, lumbar region (principal)
CPT/HCPCS: 72110

== ENCOUNTER → 2023-02-12 13:05 | Outpatient (CLI) | payer OTHER, SELFPAY | LOC: SL 13:06 | PROVIDERS: PCP Physician Assistant; Visit Provider Physician Assistant | DX: G47.33 Obstructive sleep apnea (adult) (pediatric) (principal) | CPT/HCPCS: G0399 ==

== ENCOUNTER → 2023-03-26 11:11 | Outpatient (CLI) | payer OTHER, SELFPAY | LOC: RT 11:14 | PROVIDERS: PCP Physician Assistant; Visit Provider Nurse Practitioner | DX: I49.9 Cardiac arrhythmia, unspecified (principal) | CPT/HCPCS: 93270 ==

== ENCOUNTER → 2023-05-06 06:03 | Outpatient (CLI) | payer OTHER, SELFPAY ==
--- NOTE | 2023-05-06 | CA_ITS ---
APPROVED REPORT Exam: Pharmacologic Technologist: Natalie Craig, Ht: 5 ft 11 in Wt: 247 lbs BSA: 2.31 m2 HR: 80 bpm BP: 124/74 mmHg Rhythm: NSR Medical History Medical History: HTN, Hyperlipidemia, Diabetes Medications: Aspirin,,,,, Metformin,,,,, Gabapentin,,,,, Carvedilol,,,,, Tramadol,,,,, Vit D3,,,,, FeNOfibrate,,,,, Baclofen,,,,, Humalog,,,,, Sertraline,,,,, Nitroglycerin,,,,, Methocarbamol,,,,, Allergies: LEVOFLOXACIN Cardiac Risk Factors: HTN, Hyperlipidemia, Diabetes , , FHX of CAD, Smoking Stress Test Details Test: LEXISCAN HR Resting HR: 81 bpm Max Heart Rate (APMHR): 163 bpm Max HR Achieved: 96 bpm Target HR (85% APMHR): 139 bpm % of APMHR: 59 Recovery HR: 87 bpm BP Resting BP: 124/74 mmHg Max BP: 176/8 mmHg Recovery BP: 125.0/75.0 mmHg ECG Resting ECG: Normal sinus rhythm Stress ECG: No ST changes Arrhythmia: None Clinical Exercise duration: 04:00 min Highest Stage Achieved: Exercise capacity: 1.0 METs Stress ECG Conclusion PT HAD DYSPNEA, AND HEADACHE NO SIGNIFICANT ST CHANGES NO ARRHYTHMIAS CONCLUSION UNREMARKABLE LEXISCAN STRESS TEST. MYOVIEW IMAGES ARE REPORTED SEPARATELY. Test Summary REST 12:43 . . 81 . 124/ 74 . . Stage 1 . . . . . . . Myoview Injected Stage 1 01:00 . . 94 . . . . Stage 2 01:00 . . 94 . 117/ 68 . . Stage 3 01:00 . . 87 . 126/ 73 . . Stage 4 01:00 . . 86 . 134/ 74 . Stop exercise at 04:00 RECOVERY 01:00 . . 87 . 122/ 75 . . RECOVERY 02:00 . . 86 . 125/ 75 . . RECOVERY 02:12 . . 86 . 125/ 75 . . Electronically signed by : Jonna Harris, 05/11/2023 23:50:22
--- NOTE | 2023-05-06 06:19 | NM_ITS ---
APPROVED REPORT Exam: Nuclear Stress Test Indication: CAD, 2 STENTS, HTN, DM, HYPERLIPIDEMIA, FM HX, SOB Patient Location: Outpatient Stress Tech: Natalie Craig AR Tech:Shawnee SantiagoTROY rolle RT (R)(N)(M) Ht: 5 ft 11 in Wt: 247 lbs HR: 80 bpm BP: 124/74 mmHg BSA: 2.31 m2 Rhythm: NSR TID: 1.19 BMI: 34.4 History: CAD, 2 STENTS, HTN, DM, HYPERLIPIDEMIA, FM HX, SOB Procedure: Patient received 0.4 mg of intravenous Lexiscan, resting heart rate 80 bpm, resting blood pressure 124/74 mmHg, with Lexiscan maximum heart rate achieved was 96 bpm which is % of the maximum predicted heart rate and blood pressure was 117/68 mmHg. With Lexiscan, patient denied any complaint of chest pain. Cardiac Stress and Resting SPECT Images: Cardiac Stress and Resting SPECT images were obtained using technetium 99m Myoview 30.2 mCi stress and 10.25 mCi at rest. Resting and stress imaging in both supine and prone positions demonstrate no evidence of fixed or reversible perfusion defects. Gated imaging demonstrates normal global and regional LV systolic function. LVEF is calculated at 63%. Conclusion: No evidence of fixed or reversible perfusion defects. Gated imaging demonstrates normal global and regional LV systolic function. LVEF is calculated at 63%. Electronically signed by : Jonna Harris, 05/11/2023 23:58:31
== END ==
PROVIDERS: PCP Family Medicine; Visit Provider Physician Assistant
DX: R06.02 Shortness of breath (principal); R06.01 Orthopnea; I49.9 Cardiac arrhythmia, unspecified; I20.8 Other forms of angina pectoris; I10 Essential (primary) hypertension; E11.9 Type 2 diabetes mellitus without complications; E78.1 Pure hyperglyceridemia; E78.5 Hyperlipidemia, unspecified; G47.33 Obstructive sleep apnea (adult) (pediatric); Z79.4 Long term (current) use of insulin
CPT/HCPCS: 78452; 93017; A9502; J2785

== ENCOUNTER → 2023-06-04 15:29 | Outpatient (CLI) | payer OTHER, SELFPAY ==
--- NOTE | 2023-06-04 15:36 | CT_ITS ---
PROCEDURE INFORMATION: Exam: CT Abdomen And Pelvis With Contrast Exam date and time: 06/04/2023 5:30 PM Age: 58 years old Clinical indication: Other: Llq pain TECHNIQUE: Imaging protocol: Computed tomography of the abdomen and pelvis with contrast. Radiation optimization: All CT scans at this facility use at least one of these dose optimization techniques: automated exposure control; mA and/or kV adjustment per patient size (includes targeted exams where dose is matched to clinical indication); or iterative reconstruction. Contrast material: ISOVUE; Contrast volume: 75 ml; Contrast route: IV; Other contrast: Oral; REPORTING DATA: Count of CT and Cardiac NM exams in prior 12 months: This patient has received 0 known CTs and 0 known cardiac nuclear medicine studies in the 12 months prior to the current study. COMPARISON: ABDPELW/O CT ABD PELVIS W/O CONTRAST 12/02/2016 8:31 PM FINDINGS: Lungs: Subcentimeter nodules in the bilateral lower lungs appear stable. Liver: Normal. No mass. Gallbladder and bile ducts: Gallbladder is surgically absent. Pancreas: Normal. No ductal dilation. Spleen: Normal. No splenomegaly. Adrenal glands: Normal. No mass. Kidneys and ureters: A few small caliceal cyst noted in the right kidney. No evidence of ureteral stone or hydronephrosis. Left kidney appears normal. Stomach and bowel: Left lower perirectal fluid collection compatible with abscess, measuring 4.2 cm in greatest diameter. Mild surrounding fatty stranding. Appendix: No evidence of appendicitis. Intraperitoneal space: Unremarkable. No free air. No significant fluid collection. Vasculature: Moderate atherosclerotic calcification throughout the aorta and iliac arteries. No evidence of aneurysm or dissection. Lymph nodes: Shotty periaortic lymphadenopathy. Urinary bladder: Unremarkable as visualized. Reproductive: Unremarkable as visualized. Bones/joints: Unremarkable. No acute fracture. Soft tissues: Unremarkable. IMPRESSION: 4.2 cm left lower perirectal abscess. Other incidental findings as noted. COMMENTS: Consistent with the [place]'s Incidental Findings Committee white paper (J Am Kojo Radiol 2018): Any incidental renal lesion less than 1 cm or classified as too small to characterize, or any incidental cystic renal lesion characterized as simple-appearing, is likely benign. No follow-up imaging is recommended for these lesions per consensus recommendations based on imaging criteria.
[2023-06-04 19:39] VITALS: BMI 26.6
== END ==
PROVIDERS: PCP Family Medicine; Visit Provider Family Medicine
DX: R10.32 Left lower quadrant pain (principal); K62.89 Other specified diseases of anus and rectum; D72.829 Elevated white blood cell count, unspecified
CPT/HCPCS: 74177

== ENCOUNTER 2023-06-04 19:22 | Observation (INO) | payer OTHER, SELFPAY ==
--- NOTE | 2023-06-04 19:38 | PC.NURSE ---
Patient arrived to floor via wheelchair at 19:35.
[2023-06-04 19:49] VITALS: BMI 33.7
[2023-06-04 20:00] VITALS: BP 177/99; PULSE 122; RESP 18; TEMP 36.9; O2SAT 96; BMI 33.9
[2023-06-04 20:48] LABS: Creatinine Clearance Estimated 156 mL/min (50-200); Estimated Glomerular Filt Rate 99 ml/min (>60); GFR (African American) 120 ML/MIN (>60)
[2023-06-04 22:36] LABS: POC Glucose,Bedside 254 (70-110)
[2023-06-05] VITALS (19 sets, daily range): BP systolic 122–169; BP diastolic 45–99; PULSE 84–111; RESP 16–20; TEMP 36.5–43; O2SAT 93–98; BMI 33.7; BMI 33.9
--- NOTE | 2023-06-05 05:31 | PC.NURSE ---
Since arriving to the floor the patient has been up the bathroom multiple times. Has complained of pain through the night, see MAR. The medication has helped some and we have applied an ice pack and it has helped the most. No other issues noted.
[2023-06-05 05:32] LABS: POC Glucose,Bedside 115 (70-110)
--- NOTE | 2023-06-05 06:53 | EXP.SURG.CON ---
History of Present Illness *Admission Date: 06/04/23 *Reason for visit:: Perianal/perirectal abscess *History of present illness: This is a 58-year-old gentleman seen in consultation from Dr. Savage for evaluation regarding left perirectal/perianal abscess. He presented for follow-up yesterday in the outpatient clinic with complaints of increasing perianal pain/swelling (previously started on antibiotics for suspected infectious process). A follow-up CT scan revealed a 4.2 cm left lower perirectal abscess. He was admitted for pain management, IV antibiotics, and surgical consultation. [facility] Disclaimer: The information contained in this section may have been updated after the patient was seen, as this information can be updated by other users. Medical History (Updated 06/05/23 @ 07:01 by Juancarlos Blanco MD) Asthma CAD (coronary artery disease) Chest pain DM2 (diabetes mellitus, type 2) Edema GERD (gastroesophageal reflux disease) Heart murmur Hernia HLD (hyperlipidemia) HTN (hypertension) Hypertriglyceridemia LAURI (obstructive sleep apnea) SOB (shortness of breath) Surgical History (Updated 06/04/23 @ 19:46 by Conchita Grijalva RN) History of heart artery stent Hx of myringotomy Hx of tonsillectomy Family History Other Asthma Cancer Diabetes Heart attack Hyperlipidemia Hypertension Social History (Updated 06/04/23 @ 19:46 by Conchita Grijalva RN) Smoking Status: Former smoker alcohol intake: current substance use type: denies use current occupational status: employed Travel in the last 8 weeks: None household members: spouse housing: house 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 occupational exposures/hazards: Yes caffeine: Yes Meds Home Medications and Allergies Home Medications Medication Instructions Recorded Confirmed Type carvedilol 25 mg tablet (Coreg) 25 mg PO BID blood pressure 06/10/18 06/04/23 History nitroglycerin 0.4 mg sublingual 0.4 mg sublingual Q5-15M PRN Heart 06/10/18 06/04/23 History tablet (Nitrostat) Rate- High baclofen 10 mg tablet 10 mg PO TID Pain 01/19/19 06/04/23 History metformin 850 mg tablet 850 mg PO TID Diabetes 01/19/19 06/04/23 History gabapentin 600 mg tablet 600 mg PO TID Pain 05/25/19 06/04/23 History tramadol 50 mg tablet 50 mg PO Q6H PRN Pain 01/26/20 06/04/23 History cholecalciferol (vitamin D3) 25 25 mcg PO DAILY Vitamin 01/03/21 06/04/23 History mcg (1,000 unit) capsule fenofibrate 160 mg tablet 160 mg PO DAILY Cholesterol 01/03/21 06/04/23 History rosuvastatin 40 mg tablet 40 mg PO DAILY Cholesterol 01/03/21 06/04/23 History sertraline 100 mg tablet 200 mg PO DAILY mood 01/03/21 06/04/23 History empagliflozin 25 mg tablet 25 mg PO DAILY Diabtese 04/18/22 06/04/23 History (Jardiance) ezetimibe 10 mg tablet (Zetia) 10 mg PO DAILY CAD 02/14/23 06/04/23 History insulin lispro protamine-lispro 30 unit SQ BID Diabetes 05/07/23 06/04/23 History 100 unit/mL (75-25) subcutaneous pen (Humalog Mix 75-25 KwikPen) acetaminophen 500 mg tablet 1,000 mg PO BID Pain 06/04/23 06/04/23 History aspirin 81 mg tablet,delayed 81 mg PO DAILY CAD 06/04/23 06/04/23 History release insulin glargine 100 33 unit SQ DAILY Diabetes 06/04/23 06/04/23 History unit-lixisenatide 33 mcg/mL subcutaneous pen (Soliqua 100/33) isosorbide mononitrate 120 mg 120 mg PO DAILY CAD 06/04/23 06/04/23 History tablet,extended release 24 hr naproxen 250 mg tablet 440 mg PO DAILY Pain 06/04/23 06/04/23 History ranolazine 500 mg tablet,extended 500 mg PO BID CAD 06/04/23 06/04/23 History release,12 hr New Prescriptions to Start Prescriptions: Allergies Allergy/AdvReac Type Severity Reaction Status Date / Time levofloxacin [From LEVAQUIN] Allergy Unknown Verified 04/30/23 08:25 Exam (Inpt) Vital signs and Labs for Last 24 Hours: Temp Pulse Resp BP Pulse Ox O2 Del Metho
--- NOTE | 2023-06-05 07:36 | HMH.PHAINT1 ---
Pharmacy Intervention Comments: MEDICATION RECONCILIATION COMPLETED ON PATIENT USING EXTERNAL FILL HISTORY FROM PHARMACY AND LIST FROM CARDIOLOGY OFFICE. -KWABENA MCKEON, BIANKAD
[2023-06-05 08:05] LABS: Basophils % 0.3 % (0.1-2.0); Eosinophils # 0.3 K/mm3 (0.0-0.4); Hemoglobin 14.7 g/dL (14.1-18.0); Lymphocytes # 1.7 K/mm3 (0.7-4.5); Lymphocytes % 13.3 % (10-50); Mean Corpuscular HGB Conc 32.6 g/dL (31.8-35.4); Mean Corpuscular Hemoglobin 27.6 pg (27.0-31.2); Mean Corpuscular Volume 84.5 fl (80-94); Mean Platelet Volume 8.2 fl (7.4-10.4); Monocytes # 0.7 K/mm3 (0.1-1.0); Monocytes % 5.2 % (1.7-9.3); Neutrophils # 10.4 K/mm3 (1.8-7.8); Neutrophils % 79.3 % (37.0-80.0); Platelet Count 284 K/mm3 (142-424); Red Blood Count 5.32 M/mm3 (4.60-6.20); Red Cell Distribution Width 13.1 % (11.5-17.5); White Blood Count 13.1 K/mm3 (4.8-10.8)
[2023-06-05 08:12] LABS: Anion Gap 20.6 mEq/L (5-15); Blood Urea Nitrogen 13 mg/dl (9-20); Calcium 9.2 mg/dl (8.4-10.2); Carbon Dioxide 22 mmol/L (22.0-30.0); Chloride 100 mmol/L (98-107); Creatinine Clearance Estimated 156 mL/min (50-200); Estimated Glomerular Filt Rate 99 ml/min (>60); GFR (African American) 120 ML/MIN (>60); Glucose 147 mg/dl (74-100); Potassium 3.6 mmoL/L (3.5-5.1); Sodium 139 mmol/L (136-145)
--- NOTE | 2023-06-05 08:22 | EXP.HP ---
History of Present Illness *Admission Date: 06/04/23 *Reason for visit:: perirectal abscess *History of present illness: Mr. Calle is a 58-year-old male who was seen in the office earlier this week for a perirectal abscess. He was started on cipro and flagyl. He began having increased perianal pain and swelling. A CT scan revealed a 4.2 cm left lower perirectal abscess. He was admitted for pain management, IV antibiotics, and surgery was consulted. [facility] Disclaimer: The information contained in this section may have been updated after the patient was seen, as this information can be updated by other users. Medical History (Updated 06/05/23 @ 09:01 by ROSEANNA Asher) Asthma CAD (coronary artery disease) Chest pain DM2 (diabetes mellitus, type 2) Edema GERD (gastroesophageal reflux disease) H/O nephrolithotomy with removal of calculi Heart murmur Hernia HLD (hyperlipidemia) HTN (hypertension) Hypertriglyceridemia LAURI (obstructive sleep apnea) SOB (shortness of breath) Surgical History (Updated 06/05/23 @ 09:01 by ROSEANNA Asher) H/O esophagogastroduodenoscopy History of colonoscopy History of heart artery stent Hx of myringotomy Hx of tonsillectomy Family History Other Asthma Cancer Diabetes Heart attack Hyperlipidemia Hypertension Social History (Updated 06/04/23 @ 19:46 by Conchita Grijalva RN) Smoking Status: Former smoker alcohol intake: current substance use type: denies use current occupational status: employed Travel in the last 8 weeks: None household members: spouse housing: house current occupation: [employer] current occupational exposures/hazards: Yes caffeine: Yes Review of Systems Constitutional Constitutional: Denies fatigue, Denies headache(s) and Denies weakness Eyes Eyes: Denies blurry vision and Denies diplopia ENT Ears, Nose, Mouth, and Throat: Denies headache(s), Denies nasal congestion, Denies sore throat and Denies vertigo *Cardiovascular Cardiovascular: Denies chest pain, Denies dyspnea and Denies leg edema *Respiratory Respiratory: Denies cough and Denies dyspnea *Gastrointestinal Gastrointestinal: Reports abdominal pain (diffuse), Reports constipation (have very little small stools), Reports nausea and Denies vomiting *Genitourinary Genitourinary: Reports difficulty urinating and Denies dysuria *Musculoskeletal Musculoskeletal: Denies arthralgias, Reports back pain and Denies myalgias *Neurologic Neurologic: Denies headache(s), Denies vertigo and Denies weakness Endocrine Endocrine: Denies fatigue Meds Home Medications and Allergies Home Medications Medication Instructions Recorded Confirmed Type carvedilol 25 mg tablet (Coreg) 25 mg PO BID High Blood Pressure 06/10/18 06/04/23 History baclofen 10 mg tablet 10 mg PO TID Muscle Spasm 01/19/19 06/04/23 History metformin 850 mg tablet 850 mg PO TID Diabetes 01/19/19 06/04/23 History gabapentin 600 mg tablet 600 mg PO TID Pain 05/25/19 06/04/23 History tramadol 50 mg tablet 50 mg PO TIDP PRN Moderate Pain 01/26/20 06/05/23 History (Scale Score 5-6) cholecalciferol (vitamin D3) 25 25 mcg PO DAILY Supplement 01/03/21 06/04/23 History mcg (1,000 unit) capsule fenofibrate 160 mg tablet 160 mg PO DAILY Cholesterol 01/03/21 06/04/23 History rosuvastatin 40 mg tablet 40 mg PO DAILY Cholesterol 01/03/21 06/04/23 History sertraline 100 mg tablet 200 mg PO DAILY mood 01/03/21 06/04/23 History empagliflozin 25 mg tablet 25 mg PO DAILY Diabetes 04/18/22 06/04/23 History (Jardiance) ezetimibe 10 mg tablet (Zetia) 10 mg PO DAILY Cholesterol 02/14/23 06/04/23 History insulin lispro protamine-lispro 30 unit SQ BID Diabetes 05/07/23 06/04/23 History 100 unit/mL (75-25) subcutaneous pen (Humalog Mix 75-25 KwikPen) acetaminophen 500 mg tablet 1,000 mg PO BIDP PRN Mild Pain 06/04/23 06/05/23 History (Scale Score 1-4) aspirin 81 m
--- NOTE | 2023-06-05 08:35 | EXP.ACUTE.PN ---
Subjective *Date: 06/04/23 *Time: 18:30 Interval history: Patient was seen in the office of [facility] for the second time this week with pelvic pain and perirectal pain. WBC count was elevated, CT scan showed perirectal abscess. Patient was admitted for IV antibiotics and surgical intervention. Medical Exam Vital signs and Labs for Last 24 Hours: Vital Signs Temp Pulse Resp BP Pulse Ox O2 Del Method 06/05/23 08:00 98.5 F 100 H 18 162/85 H 98 Room Air 06/05/23 08:00 Room Air 06/05/23 05:00 Room Air 06/05/23 04:00 98.5 F 105 H 18 150/98 H 94 L Room Air 06/05/23 00:00 98.3 F 105 H 18 151/89 H 97 Room Air 06/04/23 21:00 Room Air 06/05/23 06:45 Room Air 06/05/23 03:00 Room Air 06/05/23 01:00 Room Air 06/04/23 23:00 Room Air 06/04/23 20:00 Room Air 06/04/23 20:00 98.4 F 122 H 18 177/99 H 96 Room Air Intake and Output 06/04/23 06/05/23 06/05/23 23:59 07:59 15:59 Intake Total 102 / 102 0 / 102 Output Total 0 / 0 0 / 0 0 / 0 Balance 0 / 102 102 / 102 0 / 102 Intake: Intake, Oral Amount 0 / 0 Intake, Total IV Amount 100 / 100 Piperacillin/Tazo 3.375 gm In 0 100 / 100 .9 % Sodium Chloride 50 ml @ 100 mls/hr IV Q6H RADHA Rx#: [id number] Infusion Intake 2 / 2 Piperacillin/Tazo 3.375 gm In 0 2 / 2 .9 % Sodium Chloride 50 ml @ 100 mls/hr IV Q6H RADHA Rx#: [id number] Output: Output, Urine Amount 0 / 0 0 / 0 0 / 0 Other: Number of Unmeasured Voids 1 1 0 Number of Bowel Movements 1 1 Weight 242 lb 2 oz 241 lb 7 oz 242 lb 8 oz Patient Weight 06/05/23 23:59 Weight 242 lb 8 oz Laboratory Results - last 24 hr 06/04/23 20:30: Creatinine 0.80, Estimated Creat Clear 156, Estimated GFR 99, Est GFR ( Amer) 120 06/04/23 22:27: POC Glucose 254 H 06/05/23 05:24: POC Glucose 115 H 06/05/23 07:53: WBC 13.1 H, RBC 5.32, Hgb 14.7, Hct 45.0, MCV 84.5, MCH 27.6, MCHC 32.6, RDW 13.1, Plt Count 284, MPV 8.2, Neut % (Auto) 79.3, Lymph % (Auto) 13.3, Bond % (Auto) 5.2, Eos % (Auto) 2.0, Baso % (Auto) 0.3, Neut # (Auto) 10.4 H, Lymph # (Auto) 1.7, Bond # (Auto) 0.7, Eos # (Auto) 0.3, Baso # (Auto) 0.0, Sodium 139, Potassium 3.6, Chloride 100, Carbon Dioxide 22, Anion Gap 20.6 H, BUN 13, Creatinine 0.80, Estimated Creat Clear 156, Estimated GFR 99, Est GFR ( Amer) 120, Glucose 147 H, Calcium 9.2 I & O for Labs for Last 24 Hours: Intake & Output 06/02/23 06/03/23 06/04/23 06/05/23 23:59 23:59 23:59 23:59 Intake Total 102 / 102 Output Total 0 / 0 0 / 0 Balance 0 / 102 102 / 102 Weight 242 lb 2 oz 242 lb 8 oz Constitutional: Present no acute distress Respiratory: Present CTA bilaterally Cardiac: Present Regular Rhythm Rectal (male): Present normal inspection and tenderness (left side) Assessment and Plan *Assessment and plan (1) Perirectal abscess: Status: Acute Category: Medical Code(s): K61.1 - Rectal abscess (2) DM2 (diabetes mellitus, type 2): Status: Chronic Qualifiers: Diabetes mellitus intermodal dispatcher insulin use: with intermodal dispatcher use Diabetes mellitus complication status: with unspecified complications Qualified Code(s): E11.8 - Type 2 diabetes mellitus with unspecified complications; Z79.4 - retirement (current) use of insulin Category: Medical Code(s): E11.9 - Type 2 diabetes mellitus without complications (3) HTN (hypertension): Status: Chronic Qualifiers: Hypertension type: essential hypertension Qualified Code(s): I10 - Essential (primary) hypertension Category: Medical Code(s): I10 - Essential (primary) hypertension Plan Spoke to Dr. Blanco, see orders.
--- NOTE | 2023-06-05 09:38 | P.OP_ITS ---
Date of procedure: 06/05/23 Pre-op Diagnosis:: Left perirectal abscess Post-op Diagnosis:: Same Procedure performed:: Incision and drainage of complex left perirectal abscess Surgeon:: Juancarlos Blanco MD ACADEMIC AFFAIRS SPECIALIST:: Adrián Saleh Anesthesia: GETA Estimated blood loss (mL): 15 Operative findings:: Large complex deep left perirectal space abscess Operative note:: After informed consent was obtained the patient was taken to the operating room and placed in the supine position. General anesthesia was induced and he was transferred to a modified lithotomy position. The perianal/buttock region was prepped and draped in a sterile fashion. Digital rectal exam confirmed soft tissue thickening along the left perianal/perirectal region. Electrocautery was utilized to incise the skin lateral to the anal margin. The deep subcutaneous tissue was dissected to the level of the abscess. Palpation through the excision site and digital rectal exam confirmed appropriate location. The abscess cavity was then entered bluntly. A large volume of purulent fluid was expressed. Fluid was obtained for Gram stain/culture. The entire region was thoroughly irrigated and then packed with moistened Kerlix. 1% lidocaine was infiltrated within the Kerlix. Dressings were applied and the patient was transferred to recovery. Condition: stable Disposition: PACU Specimens:: Fluid for Gram stain/culture Complications:: No immediate
--- NOTE | 2023-06-05 09:49 | EXP.ANES.CKL ---
[facility] Disclaimer: The information contained in this section may have been updated after the patient was seen, as this information can be updated by other users. Medical History (Updated 06/05/23 @ 09:01 by ROSEANNA Asher) Asthma CAD (coronary artery disease) Chest pain DM2 (diabetes mellitus, type 2) Edema GERD (gastroesophageal reflux disease) H/O nephrolithotomy with removal of calculi Heart murmur Hernia HLD (hyperlipidemia) HTN (hypertension) Hypertriglyceridemia LAURI (obstructive sleep apnea) SOB (shortness of breath) Surgical History (Updated 06/05/23 @ 09:01 by ROSEANNA Asher) H/O esophagogastroduodenoscopy History of colonoscopy History of heart artery stent Hx of myringotomy Hx of tonsillectomy Family History Other Asthma Cancer Diabetes Heart attack Hyperlipidemia Hypertension Social History (Updated 06/04/23 @ 19:46 by Conchita Grijalva RN) Smoking Status: Former smoker alcohol intake: current substance use type: denies use current occupational status: employed Travel in the last 8 weeks: None household members: spouse housing: house current occupation: [employer] current occupational exposures/hazards: Yes caffeine: Yes [facility] Anesthesia Checklist Patient Identification Patient Identification: Arm Band Structural Data Admitted From: Home Planned Operative Procedure/s: I&D Perirectal Abscess Consent for Planned Operative Procedure(s) Verified: Yes Verified Documents: Surgical Consent and History and Physical NPO Status Verified Time NPO: 00:00 Additional verifications Anesthesia Reactions: No Hx Blood Transfusions: No Blood Transfusion Reaction: No Airway Assessment Mallampati Score:: Class II C-Spine Mobility Assessed: Yes TMJ Mobility Assessed: Yes Dentition: Edentulous Neurological Assessment Level of Consciousness: Awake and Alert Anesthesia Plan Anesthesia Risk discussed: Yes Anesthesia Plan: Verified ASA Class: III Anesthesia Type: General
--- NOTE | 2023-06-05 09:51 | EXP.ANES.I ---
[facility] Anesthesia Record Part I Anesthesia Record I Intake, IV Amount: 400 Hydration: Adequate Estimated blood loss (mL): 5 Urine output (mL): 0 Blood Products used (#): none Blood Pressure: 159/85 SaO2: 97 Pulse Rate: 104 Airway Patency: Patent Respiratory Rate: 16 Temperature: 99 F Patient is:: Drowsy and Stable Stable to PACU at:: 09:45
[2023-06-05 11:01] LABS: POC Glucose,Bedside 152 (70-110)
--- NOTE | 2023-06-05 13:28 | EXP.ACUTE.PN ---
Subjective *Date: 06/05/23 *Time: 13:28 Interval history: Patient is back from the OR. He ate lunch and has urinated. He would like to go home. Medical Exam Vital signs and Labs for Last 24 Hours: Vital Signs Temp Pulse Pulse Resp BP BP Pulse Ox 06/05/23 11:00 06/05/23 10:15 100 H 19 155/45 H 95 06/05/23 10:05 97.7 F 103 H 19 155/92 H 97 06/05/23 09:55 99.0 F 103 H 19 159/85 H 97 06/05/23 09:45 99.0 F 103 H 19 122/82 97 06/05/23 08:00 98.5 F 100 H 18 162/85 H 98 06/05/23 08:00 06/05/23 05:00 06/05/23 04:00 98.5 F 105 H 18 150/98 H 94 L 06/05/23 00:00 98.3 F 105 H 18 151/89 H 97 06/04/23 21:00 06/05/23 06:45 06/05/23 03:00 06/05/23 01:00 06/04/23 23:00 06/04/23 20:00 06/04/23 20:00 98.4 F 122 H 18 177/99 H 96 06/05/23 09:52 99 F 104 H 16 159/85 H O2 Del Method 06/05/23 11:00 Room Air 06/05/23 10:15 06/05/23 10:05 Room Air 06/05/23 09:55 Room Air 06/05/23 09:45 Room Air 06/05/23 08:00 Room Air 06/05/23 08:00 Room Air 06/05/23 05:00 Room Air 06/05/23 04:00 Room Air 06/05/23 00:00 Room Air 06/04/23 21:00 Room Air 06/05/23 06:45 Room Air 06/05/23 03:00 Room Air 06/05/23 01:00 Room Air 06/04/23 23:00 Room Air 06/04/23 20:00 Room Air 06/04/23 20:00 Room Air 06/05/23 09:52 Intake and Output 06/04/23 06/05/23 06/05/23 23:59 07:59 15:59 Intake Total 102 / 622 520 / 622 Output Total 0 / 0 0 / 0 0 / 0 Balance 0 / 102 102 / 622 520 / 622 Intake: Intake, Oral Amount 120 / 120 Intake, Total IV Amount 100 / 500 400 / 500 Piperacillin/Tazo 3.375 gm In 0 100 / 100 .9 % Sodium Chloride 50 ml @ 100 mls/hr IV Q6H [facility] Rx#: [id number] Infusion Intake 2 / 2 Piperacillin/Tazo 3.375 gm In 0 2 / 2 .9 % Sodium Chloride 50 ml @ 100 mls/hr IV Q6H [facility] Rx#: [id number] Output: Output, Urine Amount 0 / 0 0 / 0 0 / 0 Other: Number of Unmeasured Voids 1 1 0 Number of Bowel Movements 1 1 Weight 242 lb 2 oz 241 lb 7 oz 242 lb 8 oz Patient Weight 06/05/23 23:59 Weight 242 lb 8 oz Laboratory Results - last 24 hr 06/04/23 20:30: Creatinine 0.80, Estimated Creat Clear 156, Estimated GFR 99, Est GFR ( Amer) 120 06/04/23 22:27: POC Glucose 254 H 06/05/23 05:24: POC Glucose 115 H 06/05/23 07:53: WBC 13.1 H, RBC 5.32, Hgb 14.7, Hct 45.0, MCV 84.5, MCH 27.6, MCHC 32.6, RDW 13.1, Plt Count 284, MPV 8.2, Neut % (Auto) 79.3, Lymph % (Auto) 13.3, [place] % (Auto) 5.2, Eos % (Auto) 2.0, Baso % (Auto) 0.3, Neut # (Auto) 10.4 H, Lymph # (Auto) 1.7, [place] # (Auto) 0.7, Eos # (Auto) 0.3, Baso # (Auto) 0.0, Sodium 139, Potassium 3.6, Chloride 100, Carbon Dioxide 22, Anion Gap 20.6 H, BUN 13, Creatinine 0.80, Estimated Creat Clear 156, Estimated GFR 99, Est GFR ( Amer) 120, Glucose 147 H, Calcium 9.2 06/05/23 10:36: POC Glucose 152 H I & O for Labs for Last 24 Hours: Intake & Output 06/02/23 06/03/23 06/04/23 06/05/23 23:59 23:59 23:59 23:59 Intake Total 622 / 622 Output Total 0 / 0 0 / 0 Balance 0 / 102 622 / 622 Weight 242 lb 2 oz 242 lb 8 oz Assessment and Plan *Assessment and plan (1) Perirectal abscess: Status: Acute Category: Medical Code(s): K61.1 - Rectal abscess (2) LAURI (obstructive sleep apnea): Problem Comment: HSAT 02/12/2023: AHI 10, RDI 21, lowest oxygen saturation: 80%. Loud snoring was recorded during 26% of total sleep time. The result of the test were discussed on the visit as well as well as usual signs, symptoms and risk factors of LAURI if this condition remains untreated. He is willing to try AutoPap again. He is not a candidate for oral appliance due to upper and lower plates. He is already working on lifestyle modification including weight loss, and tight control of Diabetes Mellitus. Status: Chronic Category: Medical
--- NOTE | 2023-06-05 15:00 | PC.NURSE ---
Late entry Pt is urinating without difficulty at this time. Pt had c/o not able to urinate after arriving to floor. Bladder scan obtained after complaint. Pt had greater than 600 ml. Attempted to cath pt and pt stated to stop. MD was consulted again after initial order to straight cath. New orders received to given lidocaine urojet and morphine for pain. Pt requested to eat lunch prior to getting cathed. After pt ate lunch, he was able to urinate without cath.
--- NOTE | 2023-06-05 15:12 | PC.NURSE ---
MD Blanco Notified x2 that he would need to prescribe pain medication for pt for DC per MD Savage.
--- NOTE | 2023-06-06 13:45 | EXP.ANES.II ---
[facility] Anesthesia Record Part II Anesthesia Record Part II Discharge Time: 10:15 Destination: Medical Surgical Department PACU nurse assessment reviewed?: Yes Patient Condition:: Good Anesthesia Complications:: None Swallowing reflex intact?: Yes Airway Patency: Patent Cyanosis?: No Blood Pressure: 155/45 SaO2: 95 Respiratory Rate: 19 Pulse Rate: 100 Temperature: 99 F Mental Status: Alert & Oriented Pain level:: 0 Nausea and/or vomitting:: None Intake, IV Amount: 0 Hydration: Adequate
[2023-06-06 13:46] VITALS: BP 155/45; PULSE 100; RESP 19; TEMP 37.2; O2SAT 95
--- NOTE | 2023-06-06 14:39 | CARE MANAGER ---
Contacted patient related to hospital discharge. He states he is sore but is ok. He did pecan picker new medication and is aware of follow up appointment. Denies questions or concerns. SHERYL Buchanan
--- NOTE | 2023-06-10 21:52 | EXP.DC.SUM ---
General Admission date:: 06/04/23 Discharge date: 06/05/23 HPI HPI HPI: Mr. Calle is a 58-year-old male who was seen in the office earlier this week for a perirectal abscess. He was started on cipro and flagyl. He began having increased perianal pain and swelling. A CT scan revealed a 4.2 cm left lower perirectal abscess. He was admitted for pain management, IV antibiotics, and surgery was consulted. Hospital Course Hospital Course Hospital Course: The patient was admitted and started on IV antibiotics and pain control. He was seen in consultation by general surgery and was taken to the OR by Dr. Blanco for incision and drainage. He did well after surgery and was able to urinate and wanted to go home. He was stable to be discharged home and will continue his Cipro and Flagyl. Wound care and pain control are per Dr. Blanco and he will continue to be off work until follow-up. Exam Data for Last 24 hours Vital signs and Labs for Last 24 Hours: Temp Pulse Resp BP Pulse Ox O2 Del Method 99.0 F 103 H 19 137/83 98 Room Air 06/05/23 15:10 06/05/23 15:10 06/06/23 13:46 06/05/23 15:10 06/05/23 15:10 06/05/23 15:10 Microbiology Reports for the Last 24 Hours: Microbiology 06/05/23 09:23 Rectum - Final 06/05/23 09:23 Rectum - Final 06/05/23 09:23 Rectum - Final 06/05/23 09:23 Rectum - Final 06/05/23 09:23 Rectum - Final Narrative: Constitutional Constitutional: no acute distress *Routine HEENT Exam Head: Present normocephalic and atraumatic Eye: Present EOMI and PERRL ENT: Present mucous membranes moist *Routine Neck Exam Neck: Present supple and full ROM *Routine Respiratory Exam Respiratory: Present CTA bilaterally *Routine Cardiovascular Exam Cardiovascular: Present RRR *Routine Abdominal Exam Abdominal: Present soft, normoactive bowel sounds and tenderness (diffuse tenderness) *Routine Rectal Exam Rectal:: mass (Left perianal swelling with significant tenderness to palpation) Comments:: Left lateral perianal/ischio-rectal swelling with significant tenderness to minimal palpation *Routine Genitalia Exam Genitalia:: deferred *Routine Extremities Exam Extremities: Absent cyanosis, clubbing or edema *Routine Skin Exam Skin: Present intact; Absent erythema *Routine Neurological Exam Neurological: Present alert and oriented X3 DS: Diagnosis Discharge Diagnosis (1) Perirectal abscess: Status: Acute Code(s): K61.1 - Rectal abscess (2) LAURI (obstructive sleep apnea): Status: Chronic Code(s): G47.33 - Obstructive sleep apnea (adult) (pediatric) Problem details: HSAT 02/12/2023: AHI 10, RDI 21, lowest oxygen saturation: 80%. Loud snoring was recorded during 26% of total sleep time. The result of the test were discussed on the visit as well as well as usual signs, symptoms and risk factors of LAURI if this condition remains untreated. He is willing to try AutoPap again. He is not a candidate for oral appliance due to upper and lower plates. He is already working on lifestyle modification including weight loss, and tight control of Diabetes Mellitus. (3) Hypertriglyceridemia: Status: Chronic Code(s): E78.1 - Pure hyperglyceridemia (4) CAD (coronary artery disease): Status: Chronic Code(s): I25.10 - Atherosclerotic heart disease of [place] coronary artery without angina pectoris Qualifiers: Coronary Disease-Associated Artery/Lesion type: [place] artery [place] vs. transplanted heart: [place] heart Associated angina: with other forms of angina Qualified Code(s): I25.118 - Atherosclerotic heart disease of [place] coronary artery with other forms of angina pectoris (5) HTN (hypertension): Status: Chronic Code(s): I10 - Essential (primary) hypertension Qualifiers: Hypertension type: essential hypertension Qualified Code(s): I10 - Essential (primary) hypertension (6) HLD (hyperlipidemia):
== END 2023-06-05 15:28 | disposition home or self-care (01) ==
PROVIDERS: Surgery; Admitting Provider Family Medicine; PCP Family Medicine; Visit Provider Family Medicine
PROC: (CPT 46040; principal; 2023-06-05 09:00)
DX: K61.1 Rectal abscess (principal); E11.8 Type 2 diabetes mellitus with unspecified complications; Z79.4 Long term (current) use of insulin; I10 Essential (primary) hypertension; G47.33 Obstructive sleep apnea (adult) (pediatric); E78.1 Pure hyperglyceridemia; I25.118 Atherosclerotic heart disease of native coronary artery with other forms of angina pectoris; E78.2 Mixed hyperlipidemia; Z79.899 Other long term (current) drug therapy; B96.1 Klebsiella pneumoniae [K. pneumoniae] as the cause of diseases classified elsewhere
CPT/HCPCS: 46040; 36415; 80048; 82565; 82962; 85025; 87070; 87075; 87077; 87186; 87205; 96374; G0378; J0690; J2405; J2543

== ENCOUNTER 2023-12-16 06:05 | Day surgery (SDC) | payer OTHER, SELFPAY ==
[2023-12-12 10:10] VITALS: BMI 32.8
[2023-12-16 06:22] VITALS: BP 152/92; PULSE 90; RESP 18; TEMP 36.2; O2SAT 98
[2023-12-16] MEDS: LACTATED RINGERS 1000ML 1,000 ML 25 ML IV (06:30)
--- NOTE | 2023-12-16 06:53 | P.PNANES_ITS ---
[facility] Disclaimer: The information contained in this section may have been updated after the patient was seen, as this information can be updated by other users. Medical History H/O nephrolithotomy with removal of calculi Hernia LAURI (obstructive sleep apnea) HSAT 02/12/2023: AHI 10, RDI 21, lowest oxygen saturation: 80%. Loud snoring was recorded during 26% of total sleep time. The result of the test were discussed on the visit as well as well as usual signs, symptoms and risk factors of LAURI if this condition remains untreated. He is willing to try AutoPap again. He is not a candidate for oral appliance due to upper and lower plates. He is already working on lifestyle modification including weight loss, and tight control of Diabetes Mellitus. Hypertriglyceridemia Heart murmur GERD (gastroesophageal reflux disease) Asthma Edema Chest pain SOB (shortness of breath) Typical angina DM2 (diabetes mellitus, type 2) HLD (hyperlipidemia) HTN (hypertension) CAD (coronary artery disease) Surgical History History of colonoscopy H/O esophagogastroduodenoscopy History of heart artery stent Hx of tonsillectomy Hx of myringotomy Family History Other Asthma Cancer Diabetes Heart attack Hyperlipidemia Hypertension Social History (Updated 12/16/23 @ 06:29 by Angela Abarca RN) Smoking Status: Former smoker alcohol intake: current substance use type: denies use current occupational status: employed Travel in the last 8 weeks: None household members: spouse housing: house 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 occupational exposures/hazards: Yes caffeine: Yes [facility] Anesthesia Checklist Patient Identification Patient Identification: Arm Band, Family and Verbal (Name & ) Structural Data Admitted From: Home Planned Operative Procedure/s: Colonoscopy Consent for Planned Operative Procedure(s) Verified: Yes Verified Documents: Surgical Consent and History and Physical NPO Status Verified Time NPO: 01:00 Chart Verification Results Verified: CBC, BMP, ECG and Chest Xray Additional verifications Fingerstick Blood Glucose: 270 Patient : No Anesthesia Reactions: No Hx Blood Transfusions: No Blood Transfusion Reaction: No Cardiovascular Assessment Heart Sounds: S1 & S2 (+Murmur) Pulse Rhythm: Irregular Peripheral Edema: No Airway Assessment Mallampati Score:: Class II C-Spine Mobility Assessed: Yes (FROM) TMJ Mobility Assessed: Yes Dentition: Dentures-good fit (Nothing loose per pt.) Neurological Assessment Level of Consciousness: Awake, Alert, Appropriate and Follows Commands Hx Seizures: No Numbness or tingling in extremities: No Anesthesia Plan Anesthesia Risk discussed: Yes Anesthesia Plan: Verified ASA Class: III Anesthesia Type: MAC
--- NOTE | 2023-12-16 07:08 | HMH.SCOPE ---
Procedure: Date: 12/16/23 Patient Date of :: 1965 Procedure Performed:: Colonoscopy Indications:: Bright red blood per rectum Perianal/perirectal abscess status post drainage Performing Provider:: Juancarlos Blanco MD Referring Provider:: . Sedation:: Monitored anesthesia care Procedure:: After informed consent was obtained the patient was taken to the endoscopy suite. Sedation ensued after the patient was transferred to the left lateral decubitus position. Pulse, blood pressure, and oxygen saturation were monitored throughout the procedure. Digital rectal exam revealed no significant abnormality. The colonoscope was placed in position. The entire colon was evaluated. The colonoscope was carefully removed and the patient was transferred to recovery in stable condition. Please see findings and specimens below for detail. Findings:: Bowel preparation moderate to poor Significant spasticity Moderate tortuosity No acute inflammatory changes or obvious fluctuance noted per digital rectal exam or inspection Specimens:: None Recommendations:: Repeat colonoscopy in 1-2 years with extended bowel preparation Depending upon symptomatology, the patient may ultimately require examination under anesthesia for evaluation of fistula. Complications:: No immediate Estimated blood obtained (mL): 0 Colonoscopy Component Colonoscopy Component Was a colonoscopy performed during today's procedure?: Yes Recommended follow up colonoscopy of at least 10 years?: No If no, follow up colonoscopy recommended in ___ years?: (See above) Reason for not recommending >/= 10 yr follow-up interval?: (See above)
[2023-12-16 07:22] VITALS: O2SAT 98
[2023-12-16 08:00] VITALS: BP 130/82; PULSE 96; RESP 18; TEMP 36.3; O2SAT 94
[2023-12-16 08:09] VITALS: BP 128/81; PULSE 98; RESP 18; O2SAT 94
[2023-12-16 08:12] VITALS: BP 121/79; PULSE 97; RESP 18; O2SAT 94
[2023-12-16 08:17] VITALS: BP 125/84; PULSE 91; RESP 18; O2SAT 97
[2023-12-17 12:02] LABS: POC Glucose,Bedside 270 (70-110)
== END 2023-12-16 08:20 | disposition home or self-care (01) ==
PROVIDERS: PCP Family Medicine; Visit Provider Surgery
PROC: 0DJD8ZZ Inspection of Lower Intestinal Tract, Via Natural or Artificial Opening Endoscopic (ICD-10-PCS; CPT 45378; principal; 2023-12-16 07:30)
DX: K62.5 Hemorrhage of anus and rectum (principal); K61.0 Anal abscess; K56.2 Volvulus; E11.9 Type 2 diabetes mellitus without complications
CPT/HCPCS: 45378; 82962; J2704

== ENCOUNTER 2024-04-08 05:54 | Day surgery (SDC) | payer OTHER, SELFPAY ==
[2024-04-08] VITALS (11 sets, daily range): BP systolic 105–136; BP diastolic 54–87; PULSE 72–96; RESP 12–18; TEMP 36.1–36.5; O2SAT 93–96; BMI 32.2
[2024-04-08 06:41] LABS: POC Glucose,Bedside 290 (70-110)
[2024-04-08] MEDS: LACTATED RINGERS 1000ML 1,000 ML 25 ML IV (06:44)
--- NOTE | 2024-04-08 06:58 | P.PNANES_ITS ---
[facility] Disclaimer: The information contained in this section may have been updated after the patient was seen, as this information can be updated by other users. Medical History H/O nephrolithotomy with removal of calculi Hernia LAURI (obstructive sleep apnea) Hypertriglyceridemia Heart murmur GERD (gastroesophageal reflux disease) Asthma Edema Chest pain SOB (shortness of breath) Typical angina DM2 (diabetes mellitus, type 2) HLD (hyperlipidemia) HTN (hypertension) CAD (coronary artery disease) Surgical History (Updated 04/08/24 @ 06:33 by Shakira Aden RN) History of cholecystectomy History of colonoscopy H/O esophagogastroduodenoscopy History of heart artery stent Hx of tonsillectomy Hx of myringotomy Family History Other Asthma Cancer Diabetes Heart attack Hyperlipidemia Hypertension Social History (Updated 04/08/24 @ 06:34 by Shakira Aden RN) Smoking Status: Former smoker alcohol intake: current alcohol intake frequency: holidays/special occasions only substance use type: denies use current occupational status: employed Travel in the last 8 weeks: None household members: spouse housing: house 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 occupational exposures/hazards: Yes caffeine: Yes [facility] Anesthesia Checklist Patient Identification Patient Identification: Arm Band and Family Structural Data Admitted From: Home Planned Operative Procedure/s: EUA rectal fisula. Consent for Planned Operative Procedure(s) Verified: Yes Verified Documents: Surgical Consent and History and Physical NPO Status Verified Time NPO: 00:00 Additional verifications Patient : No Anesthesia Reactions: No Hx Blood Transfusions: No Blood Transfusion Reaction: No Cephalosporin Allergy: No Previous Colonoscopy: Yes Airway Assessment Mallampati Score:: Class II C-Spine Mobility Assessed: Yes TMJ Mobility Assessed: Yes Dentition: Edentulous Neurological Assessment Level of Consciousness: Awake, Alert, Appropriate and Follows Commands Hx Seizures: No Numbness or tingling in extremities: No Anesthesia Plan Anesthesia Risk discussed: Yes ASA Class: III Anesthesia Type: General Preoperative Comments Pre-Operative Comments: Cardiac stents. Hypertension. IDDM, blood glucose 290, administered Regular Insulin 17 units Subcutaneously.
[2024-04-08] MEDS: INSULIN HUMAN REGULAR 100 UNITS/ML 10ML VIAL 100 UNIT (07:03)
--- NOTE | 2024-04-08 07:09 | SUR.PREOP ---
0650- Order for Humulog R insulin 17Units SQ now per Ingrid Davis CRNA. Contacted on-call Pharmacist Ingrid Grimm to verify is okay to give Humulin R 17U SQ instead of Humulog R. Pharmacist verified ok to give. Order written and faxed, verified dose and type again with Giacomo Phelan CRNA and Ingrid Davis CRNA. Ruthie Bahena RN co-signed administration of 17U. PT tolerated well.
[2024-04-08] MEDS: CEFAZOLIN SODIUM 2 GM in 0.9 % SODIUM CHLORIDE 100 ML IV (07:36)
[2024-04-08] MEDS: LIDOCAINE 1% 20ML MDV 20 ML (07:57)
[2024-04-08] MEDS: METRONIDAZ/SOD CHL 500 MG/100 ML PIGGYBACK 100 MG IV (08:00)
--- NOTE | 2024-04-08 08:26 | EXP.OP.NOTE ---
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 General anesthesia was induced and he was transferred to a modified lithotomy position. His perianal region was prepped and draped in a sterile fashion. A fistulous tract along the left lateral margin was carefully probed and found to be trans-sphincteric with a medial/medial high internal opening. Multiple strands of 0 Nurolon suture were secured to the probe and maneuvered through the fistulous tract. The Nurolon suture was then tied in order to complete the seton placement. The entire region was infiltrated with 1% lidocaine. Dressings were applied and the patient was transferred to recovery in stable condition. Condition: stable Disposition: PACU Specimens:: none Complications:: no immediate
--- NOTE | 2024-04-08 08:34 | P.PNANES_ITS ---
[facility] Anesthesia Record Part I Anesthesia Record I Intake, IV Amount: 800 Hydration: Adequate Estimated blood loss (mL): 5 Urine output (mL): 0 Blood Products used (#): none Blood Pressure: 122/79 SaO2: 96 Pulse Rate: 78 Airway Patency: Patent Respiratory Rate: 18 Temperature: 97.7 F Patient is:: Drowsy and Stable Comments:: Blood glucose in recovery [id number].
[2024-04-08 08:42] LABS: POC Glucose,Bedside 223 (70-110)
--- NOTE | 2024-04-08 10:47 | EXP.ANES.I ---
[facility] Anesthesia Record Part I Anesthesia Record I Intake, IV Amount: 850 Hydration: Adequate Estimated blood loss (mL): 15 Urine output (mL): 0 Blood Products used (#): none Blood Pressure: 136/87 SaO2: 93 Pulse Rate: 72 Airway Patency: Patent Respiratory Rate: 12 Temperature: 97.4 F Patient is:: Drowsy and Stable
--- NOTE | 2024-04-08 12:32 | EXP.ANES.II ---
[facility] Anesthesia Record Part II Anesthesia Record Part II Discharge Time: 09:00 Destination: Surgical Day Care (OP Surgery) PACU nurse assessment reviewed?: Yes Patient Condition:: Good Anesthesia Complications:: None Swallowing reflex intact?: Yes Airway Patency: Patent Cyanosis?: No Blood Pressure: 106/54 SaO2: 95 Respiratory Rate: 18 Pulse Rate: 95 Temperature: 97.4 F Mental Status: Alert & Oriented Pain level:: 0 Nausea and/or vomitting:: None Intake, IV Amount: 0 Hydration: Adequate
== END 2024-04-08 09:45 | disposition home or self-care (01) ==
PROVIDERS: PCP Family Medicine; Visit Provider Surgery
PROC: (CPT 46020; principal; 2024-04-08 07:30)
DX: K60.3 Anal fistula (principal)
CPT/HCPCS: 46020; 82962; 96374; J0690; J2250; J2405; J3010; J7120

== ENCOUNTER 2024-05-21 14:14 | Outpatient (CLI) | payer OTHER, SELFPAY ==
[2024-05-21 14:25] VITALS: BP 145/78; PULSE 74; RESP 17
[2024-05-21] MEDS: KETOROLAC 30MG/ML VIAL 15 MG IM (14:25)
== END 2024-05-21 14:40 | disposition home or self-care (01) ==
LOC: INF 14:16
PROVIDERS: PCP Family Medicine; Visit Provider Surgery
DX: K60.3 Anal fistula (principal)
CPT/HCPCS: 96372; J1885

== ENCOUNTER 2024-07-16 09:12 | Outpatient (CLI) | payer OTHER, SELFPAY ==
[2024-07-16 09:40] LABS: Basophils # 0.1 K/mm3 (0-0.2); Basophils % 0.8 % (0.1-2.0); Eosinophils # 0.2 K/mm3 (0.0-0.4); Eosinophils % 3.7 % (0.1-12.0); Hematocrit 38.8 % (42.0-52.0); Hemoglobin 13.7 g/dL (14.1-18.0); Lymphocytes # 1.4 K/mm3 (0.7-4.5); Lymphocytes % 22.8 % (10-50); Mean Corpuscular HGB Conc 35.2 g/dL (31.8-35.4); Mean Corpuscular Hemoglobin 29.2 pg (27.0-31.2); Mean Corpuscular Volume 82.9 fl (80-94); Mean Platelet Volume 7.7 fl (7.4-10.4); Monocytes # 0.4 K/mm3 (0.1-1.0); Monocytes % 6.2 % (1.7-9.3); Neutrophils # 4.1 K/mm3 (1.8-7.8); Neutrophils % 66.6 % (37.0-80.0); Platelet Count 212 K/mm3 (142-424); Red Blood Count 4.68 M/mm3 (4.60-6.20); Red Cell Distribution Width 13.4 % (11.5-17.5); White Blood Count 6.2 K/mm3 (4.8-10.8)
[2024-07-16 10:10] LABS: Chloride 102 mmol/L (98-107)
[2024-07-16 10:11] LABS: Potassium 4.7 mmoL/L (3.5-5.1); Sodium 136 mmol/L (136-145)
[2024-07-16 10:14] LABS: Anion Gap 12.7 mEq/L (5-15); Blood Urea Nitrogen 13 mg/dl (9-20); Calcium 9.1 mg/dl (8.4-10.2); Carbon Dioxide 26 mmol/L (22.0-30.0); Estimated Glomerular Filt Rate 115 ml/min (>60); GFR (African American) 140 ML/MIN (>60)
[2024-07-16 10:16] LABS: Glucose 426 mg/dl (74-100)
== END 2024-07-16 23:59 | disposition home or self-care (01) ==
LOC: LAB 09:14
PROVIDERS: PCP Family Medicine; Visit Provider Surgery
DX: K60.30 Anal fistula, unspecified (principal)
CPT/HCPCS: 36415; 80048; 85025

== ENCOUNTER 2024-07-22 07:49 | Day surgery (SDC) | payer OTHER, SELFPAY ==
[2024-07-20 08:44] VITALS: BMI 30.7
[2024-07-22] VITALS (9 sets, daily range): BP systolic 110–165; BP diastolic 56–93; PULSE 72–83; RESP 16–22; TEMP 36.2–36.6; O2SAT 92–97
[2024-07-22 08:17] LABS: POC Glucose,Bedside 221 (70-110)
--- NOTE | 2024-07-22 08:24 | EXP.ANES.CKL ---
[facility] Disclaimer: The information contained in this section may have been updated after the patient was seen, as this information can be updated by other users. Medical History H/O nephrolithotomy with removal of calculi Hernia LAURI (obstructive sleep apnea) HSAT 02/12/2023: AHI 10, RDI 21, lowest oxygen saturation: 80%. Loud snoring was recorded during 26% of total sleep time. The result of the test were discussed on the visit as well as well as usual signs, symptoms and risk factors of LAURI if this condition remains untreated. He is willing to try AutoPap again. He is not a candidate for oral appliance due to upper and lower plates. He is already working on lifestyle modification including weight loss, and tight control of Diabetes Mellitus. Hypertriglyceridemia Heart murmur GERD (gastroesophageal reflux disease) Asthma Edema Chest pain SOB (shortness of breath) Typical angina DM2 (diabetes mellitus, type 2) HLD (hyperlipidemia) HTN (hypertension) CAD (coronary artery disease) Surgical History History of cholecystectomy History of colonoscopy H/O esophagogastroduodenoscopy History of heart artery stent Hx of tonsillectomy Hx of myringotomy Family History Other Asthma Cancer Diabetes Heart attack Hyperlipidemia Hypertension Social History Smoking Status: Former smoker alcohol intake: never substance use type: denies use current occupational status: employed Travel in the last 8 weeks: None household members: spouse housing: house 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 occupational exposures/hazards: Yes caffeine: Yes [facility] Anesthesia Checklist Patient Identification Patient Identification: Arm Band, Family and Verbal (Name & ) Structural Data Admitted From: Home Planned Operative Procedure/s: EUA w/Seton replacement Consent for Planned Operative Procedure(s) Verified: Yes Verified Documents: Surgical Consent and History and Physical NPO Status Verified Time NPO: 22:30 Chart Verification Results Verified: CBC, BMP, ECG and Chest Xray Additional verifications Fingerstick Blood Glucose: 221 Patient : No Anesthesia Reactions: No Hx Blood Transfusions: No Blood Transfusion Reaction: No Cardiovascular Assessment Heart Sounds: S1 & S2 Pulse Rhythm: Irregular Peripheral Edema: No Airway Assessment Mallampati Score:: Class II C-Spine Mobility Assessed: Yes (FROM demonstrated) TMJ Mobility Assessed: Yes Dentition: Dentures-good fit (Top dentures in. Will remove before going to OR) Neurological Assessment Level of Consciousness: Awake, Alert, Appropriate and Follows Commands Hx Seizures: No Numbness or tingling in extremities: No Anesthesia Plan Anesthesia Risk discussed: Yes Anesthesia Plan: Verified ASA Class: III Anesthesia Type: General
[2024-07-22 08:57] LABS: Blood Urea Nitrogen 13 mg/dl (9-20); Calcium 9.2 mg/dl (8.4-10.2); Carbon Dioxide 29 mmol/L (22.0-30.0); Chloride 104 mmol/L (98-107); Creatinine Clearance Estimated 187 mL/min (50-200); Estimated Glomerular Filt Rate 138 ml/min (>60); GFR (African American) 167 ML/MIN (>60); Glucose 226 mg/dl (74-100); Sodium 141 mmol/L (136-145)
[2024-07-22] MEDS: CEFAZOLIN SODIUM 2 GM in 0.9 % SODIUM CHLORIDE 100 ML IV (09:00)
[2024-07-22] MEDS: METRONIDAZ/SOD CHL 500 MG/100 ML PIGGYBACK 100 MG IV (09:00)
[2024-07-22] MEDS: LIDOCAINE 1% 20ML MDV 20 ML (09:14)
--- NOTE | 2024-07-22 09:38 | EXP.OP.NOTE ---
Date of procedure: 07/22/24 Pre-op Diagnosis:: Fistula in ano Post-op Diagnosis:: Same Procedure performed:: Seton replacement Surgeon:: Juancarlos Blanco MD SIGNAL TESTER:: Buster Davis Anesthesia: local and LMA Estimated blood loss (mL): 5 Operative findings:: Prior seton in position Seton track very large (evidence of poor healing as seton has been tightened) Operative note:: After informed consent was obtained the patient was taken to the operating room and placed in the supine position. General anesthesia with laryngeal mask airway was achieved. He was transferred to a modified lithotomy position. Palpation revealed a large track at the seton site. There was evidence of poor healing during the process of seton tightening. 0 Novafil (2 strands) were placed in position and tightened. The prior seton was removed. 2 separate vessel loops were then placed in position and tightened by securing with silk suture. The entire region was infiltrated with 1% lidocaine. The patient's anesthetic agents were reversed and he was transferred to recovery in stable condition after removal of his laryngeal mask airway. Condition: stable Disposition: PACU Specimens:: None Complications:: No immediate
--- NOTE | 2024-07-22 09:51 | EXP.ANES.I ---
[facility] Anesthesia Record Part I Anesthesia Record I Intake, IV Amount: 900 Hydration: Adequate Estimated blood loss (mL): 5 Urine output (mL): 0 Blood Products used (#): none Blood Pressure: 132/68 SaO2: 92 Pulse Rate: 72 Airway Patency: Patent Respiratory Rate: 22 Temperature: 97.1 F Patient is:: Drowsy and Stable Stable to PACU at:: 09:40
[2024-07-22 10:06] LABS: POC Glucose,Bedside 217 (70-110)
[2024-07-22] MEDS: MORPHINE 2MG/ML SYRINGE 1 MG IV (10:07)
--- NOTE | 2024-07-22 10:12 | SUR.PHASEI ---
FSBS was 217. Reported to LINWOOD Smith
--- NOTE | 2024-07-22 14:39 | P.PNANES_ITS ---
[facility] Disclaimer: The information contained in this section may have been updated after the patient was seen, as this information can be updated by other users. Medical History H/O nephrolithotomy with removal of calculi Hernia LAURI (obstructive sleep apnea) HSAT 02/12/2023: AHI 10, RDI 21, lowest oxygen saturation: 80%. Loud snoring was recorded during 26% of total sleep time. The result of the test were discussed on the visit as well as well as usual signs, symptoms and risk factors of LAURI if this condition remains untreated. He is willing to try AutoPap again. He is not a candidate for oral appliance due to upper and lower plates. He is already working on lifestyle modification including weight loss, and tight control of Diabetes Mellitus. Hypertriglyceridemia Heart murmur GERD (gastroesophageal reflux disease) Asthma Edema Chest pain SOB (shortness of breath) Typical angina DM2 (diabetes mellitus, type 2) HLD (hyperlipidemia) HTN (hypertension) CAD (coronary artery disease) Surgical History History of cholecystectomy History of colonoscopy H/O esophagogastroduodenoscopy History of heart artery stent Hx of tonsillectomy Hx of myringotomy Family History Other Asthma Cancer Diabetes Heart attack Hyperlipidemia Hypertension Social History Smoking Status: Former smoker alcohol intake: never substance use type: denies use current occupational status: employed Travel in the last 8 weeks: None household members: spouse housing: house 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 Consent for Planned Operative Procedure(s) Verified: Yes Verified Documents: Surgical Consent and History and Physical NPO Status Verified Time NPO: 00:00 Additional verifications Patient : No Anesthesia Reactions: No Hx Blood Transfusions: No Blood Transfusion Reaction: No Cephalosporin Allergy: No Previous Colonoscopy: Yes Airway Assessment Mallampati Score:: Class II C-Spine Mobility Assessed: Yes TMJ Mobility Assessed: Yes Dentition: Good Dentition Neurological Assessment Level of Consciousness: Awake, Alert, Appropriate and Follows Commands Hx Seizures: No Numbness or tingling in extremities: No Anesthesia Plan Anesthesia Risk discussed: Yes ASA Class: II Anesthesia Type: General Preoperative Comments Pre-Operative Comments: NIDDM. S/P prostate Cancer. Controlled acid reflux.
--- NOTE | 2024-07-22 14:41 | P.PNANES_ITS ---
[facility] Anesthesia Record Part I Anesthesia Record I Intake, IV Amount: 800 Hydration: Adequate Estimated blood loss (mL): 20 Urine output (mL): 0 Blood Products used (#): none Blood Pressure: 137/80 SaO2: 98 Pulse Rate: 92 Airway Patency: Patent Respiratory Rate: 18 Temperature: 97 F Patient is:: Drowsy and Stable Stable to PACU at:: 14:30
--- NOTE | 2024-07-23 14:18 | EXP.ANES.II ---
[facility] Anesthesia Record Part II Anesthesia Record Part II Discharge Time: 10:20 Destination: Surgical Day Care (OP Surgery) PACU nurse assessment reviewed?: Yes Patient Condition:: Good Anesthesia Complications:: None Swallowing reflex intact?: Yes Airway Patency: Patent Cyanosis?: No Blood Pressure: 165/75 SaO2: 95 Respiratory Rate: 17 Pulse Rate: 80 Temperature: 97.4 F Mental Status: Alert & Oriented Pain level:: 4 Nausea and/or vomitting:: None Intake, IV Amount: 0 Hydration: Adequate
[2024-07-23 14:20] VITALS: BP 165/75; PULSE 80; RESP 17; TEMP 36.3; O2SAT 95
== END 2024-07-22 10:55 | disposition home or self-care (01) ==
PROVIDERS: PCP Family Medicine; Visit Provider Surgery
PROC: (CPT 46020; principal; 2024-07-22 09:15)
DX: K60.30 Anal fistula, unspecified (principal)
CPT/HCPCS: 46020; 80048; 82962; 96374; J0690; J1100; J2250; J2270; J2405; J3010

== ENCOUNTER 2024-12-14 06:25 | Day surgery (SDC) | payer OTHER, SELFPAY ==
[2024-12-08 12:27] VITALS: BMI 33.5
[2024-12-14] MEDS: LACTATED RINGERS 1000ML 1,000 ML 50 ML IV (06:43)
[2024-12-14 06:44] VITALS: BP 117/80; PULSE 75; RESP 18; TEMP 36.1; O2SAT 97
--- NOTE | 2024-12-14 06:55 | EXP.GEN.HP ---
HPI HPI HPI: This is a 59-year-old gentleman who presents for screening colonoscopy. Colonoscopy in December 2023 was complicated by moderate to poor bowel preparation, significant spasticity, and moderate tortuosity. A short-term repeat evaluation warranted. Of note, the patient also has a history of complex perianal abscess/[id number] and has undergone multiple procedures including seton placement. [facility] Disclaimer: The information contained in this section may have been updated after the patient was seen, as this information can be updated by other users. Medical History H/O nephrolithotomy with removal of calculi Hernia LAURI (obstructive sleep apnea) HSAT 02/12/2023: AHI 10, RDI 21, lowest oxygen saturation: 80%. Loud snoring was recorded during 26% of total sleep time. The result of the test were discussed on the visit as well as well as usual signs, symptoms and risk factors of LAURI if this condition remains untreated. He is willing to try AutoPap again. He is not a candidate for oral appliance due to upper and lower plates. He is already working on lifestyle modification including weight loss, and tight control of Diabetes Mellitus. Hypertriglyceridemia Heart murmur GERD (gastroesophageal reflux disease) Asthma Edema Chest pain SOB (shortness of breath) Typical angina DM2 (diabetes mellitus, type 2) HLD (hyperlipidemia) HTN (hypertension) CAD (coronary artery disease) Surgical History History of cholecystectomy History of colonoscopy H/O esophagogastroduodenoscopy History of heart artery stent Hx of tonsillectomy Hx of myringotomy Family History Other Asthma Cancer Diabetes Heart attack Hyperlipidemia Hypertension Social History Smoking Status: Former smoker alcohol intake: never substance use type: denies use current occupational status: employed Travel in the last 8 weeks: None household members: spouse housing: house 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 occupational exposures/hazards: Yes caffeine: Yes Have you lived/traveled outside [place] in past 30 days?: No Contact w/someone who lives/traveled outside US past 30 days?: No Exposure to someone with infectious disease in past 14 days?: No Do you have a fever (greater than 100.4 F or 38 C)?: No Have you tested positive for COVID-19: No Exposed to someone with COVID-19 in past 14 days?: No Do you have a sore throat?: No Do you have a cough?: No Do you have any weakness?: No Do you have any diarrhea?: No Are you experiencing any unusual bleeding?: No Do you have any muscle aches/pain?: No Do you have any abdominal pain?: No Are you experiencing loss of taste or smell?: No Other Medical History Have you received the Flu Vaccine for this season: No Have you received the Pneumonia Vaccine: No Meds Home Medications and Allergies Home Medications ?Medication ?Instructions ?Recorded ?Confirmed ?Type carvedilol 25 mg tablet (Coreg) 25 mg PO BID High Blood Pressure 06/10/18 12/14/24 History baclofen 10 mg tablet 10 mg PO TID Muscle Spasm 01/19/19 12/14/24 History gabapentin 600 mg tablet 600 mg PO TID Pain 05/25/19 12/14/24 History cholecalciferol (vitamin D3) 25 25 mcg PO DAILY Supplement 01/03/21 12/14/24 History mcg (1,000 unit) capsule fenofibrate 160 mg tablet 160 mg PO DAILY Cholesterol 01/03/21 12/14/24 History rosuvastatin 40 mg tablet 40 mg PO DAILY Cholesterol 01/03/21 12/14/24 History sertraline 100 mg tablet (Zoloft) 200 mg PO DAILY mood 01/03/21 12/14/24 History empagliflozin 25 mg tablet 25 mg PO DAILY Diabetes 04/18/22 12/14/24 History (Jardiance) ezetimibe 10 mg tablet (Zetia) 10 mg PO DAILY Cholesterol 02/14/23 12/14/24 History insulin lispro protamine-lispro 30 unit SQ BID Diabetes 05/07/23 12/14/24 History 100 unit/mL (75-25) subcutaneous pen (Humalog Mix 75-25 KwikPen) acetaminophen 500 mg tablet 1,000 mg PO BIDP PRN Mild Pain 06/04/23 12/14/24 History (Scale Score 1-4) insulin glargine 100 33 unit SQ DAILY Diabetes 06/04/23 12/14/24 History unit-lixisenatide 33 mcg/mL subcutaneous pen (Soliqua 100/33) naproxen 250 mg tablet 500 mg PO DAILY Pain 06/04/23 12/14/24 History tramadol 50 mg tablet 50 mg PO TID PRN Pain 11/11/23 12/14/24 History ranolazine 500 mg tablet,extended 500 mg PO DAILY 07/22/24 12/14/24 History release,12 hr colestipol 1 gram tablet 1 g PO DAILY #90 tabs 10/04/24 12/14/24 Rx isosorbide mononitrate 120 mg 120 mg PO DAILY #90 tabs 12/07/24 12/14/24 Rx tablet,extended release 24 hr New Prescriptions to Start Prescriptions: Allergies Allergy/AdvReac Type Severity Reaction Status Date / Time levofloxacin (From LEVAQUIN) Allergy Unknown Hives Verified 12/08/24 12:27 Exam Data for Last 24 hours Vital signs and Labs for Last 24 Hours: Temp Pulse Resp BP Pulse Ox O2 Del Method 97.0 F L 75 18 117/80 97 Room Air 12/14/24 06:44 12/14/24 06:44 12/14/24 06:44 12/14/24 06:44 12/14/24 06:44 12/14/24 06:44 Constitutional Constitutional: no acute distress *Routine HEENT Exam Head: Present normocephalic Eye: Present EOMI ENT: Present mucous membranes moist *Routine Neck Exam Neck: Present full ROM *Routine Respiratory Exam Respiratory: Absent respiratory distress *Routine Cardiovascular Exam Cardiovascular: Absent tachycardia *Routine Abdominal Exam Abdominal: Present soft *Routine Rectal Exam Rectal:: deferred *Routine Genitalia Exam Genitalia:: deferred *Routine Extremities Exam Extremities: Present full ROM *Routine Skin Exam Skin: Absent erythema *Routine Neurological Exam Neurological: Present alert Assessment and Plan *Assessment and plan (1) Encounter for screening colonoscopy: Status: Deleted Category: Medical Code(s): Z12.11 - Encounter for screening for malignant neoplasm of colon Plan: Colonoscopy today I have discussed the risks and benefits including, but not limited to: Bleeding Infection Damage to surrounding tissue Inherent risks of sedation The patient agrees to proceed.
--- NOTE | 2024-12-14 06:58 | EXP.ANES.CKL ---
[facility] Disclaimer: The information contained in this section may have been updated after the patient was seen, as this information can be updated by other users. Medical History H/O nephrolithotomy with removal of calculi Hernia LAURI (obstructive sleep apnea) HSAT 02/12/2023: AHI 10, RDI 21, lowest oxygen saturation: 80%. Loud snoring was recorded during 26% of total sleep time. The result of the test were discussed on the visit as well as well as usual signs, symptoms and risk factors of LAURI if this condition remains untreated. He is willing to try AutoPap again. He is not a candidate for oral appliance due to upper and lower plates. He is already working on lifestyle modification including weight loss, and tight control of Diabetes Mellitus. Hypertriglyceridemia Heart murmur GERD (gastroesophageal reflux disease) Asthma Edema Chest pain SOB (shortness of breath) Typical angina DM2 (diabetes mellitus, type 2) HLD (hyperlipidemia) HTN (hypertension) CAD (coronary artery disease) Surgical History History of cholecystectomy History of colonoscopy H/O esophagogastroduodenoscopy History of heart artery stent Hx of tonsillectomy Hx of myringotomy Family History Other Asthma Cancer Diabetes Heart attack Hyperlipidemia Hypertension Social History Smoking Status: Former smoker alcohol intake: never substance use type: denies use current occupational status: employed Travel in the last 8 weeks: None household members: spouse housing: house 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 occupational exposures/hazards: Yes caffeine: Yes Have you lived/traveled outside [place] in past 30 days?: No Contact w/someone who lives/traveled outside [place] past 30 days?: No Exposure to someone with infectious disease in past 14 days?: No Do you have a fever (greater than 100.4 F or 38 C)?: No Have you tested positive for COVID-19: No Exposed to someone with COVID-19 in past 14 days?: No Do you have a sore throat?: No Do you have a cough?: No Do you have any weakness?: No Do you have any diarrhea?: No Are you experiencing any unusual bleeding?: No Do you have any muscle aches/pain?: No Do you have any abdominal pain?: No Are you experiencing loss of taste or smell?: No [facility] Anesthesia Checklist Patient Identification Patient Identification: Arm Band and Family Structural Data Admitted From: Home Planned Operative Procedure/s: Colonoscopy Consent for Planned Operative Procedure(s) Verified: Yes Verified Documents: Surgical Consent and History and Physical NPO Status Verified Time NPO: 00:00 Additional verifications Patient : No Anesthesia Reactions: No Hx Blood Transfusions: No Blood Transfusion Reaction: No Cephalosporin Allergy: No Previous Colonoscopy: Yes Airway Assessment Mallampati Score:: Class III C-Spine Mobility Assessed: Yes TMJ Mobility Assessed: Yes Dentition: Good Dentition Neurological Assessment Level of Consciousness: Awake, Alert, Appropriate and Follows Commands Hx Seizures: No Numbness or tingling in extremities: No Anesthesia Plan Anesthesia Risk discussed: Yes ASA Class: III Anesthesia Type: MAC
[2024-12-14 07:01] LABS: POC Glucose,Bedside 264 (70-110)
[2024-12-14 07:07] VITALS: O2SAT 100
--- NOTE | 2024-12-14 07:38 | P.PCN_ITS ---
Procedure: Date: 12/14/24 Patient Date of :: 1965 Procedure Performed:: Colonoscopy with biopsy Indications:: Screening colonoscopy Note: Colonoscopy last year was complicated by limited bowel preparation, spasticity, and tortuosity. Performing Provider:: Juancarlos Blanco MD Referring Provider:: . Sedation:: Monitored anesthesia care Procedure:: After informed consent was obtained the patient was taken to the endoscopy suite. Sedation ensued after the patient was transferred to the left lateral decubitus position. Pulse, blood pressure, and oxygen saturation were monitored throughout the procedure. Digital rectal exam revealed no significant abnormality. The colonoscope was placed in position. The entire colon was evaluated. The colonoscope was carefully removed and the patient was transfe rred to recovery in stable condition. Please see findings and specimens below for detail. Findings:: Bowel preparation moderate (relatively poor in some areas) Well-healed fistula/seton site Profound spasticity/lack of relaxation Moderate tortuosity Focal inflammatory response with slightly irregular margin at 70 cm Specimens:: Biopsy of focal inflammatory response with irregular margin at 70 cm Recommendations:: Follow-up pathology Fairly short-term repeat evaluation warranted secondary to continued limited bowel preparation and spasticity/lack of relaxation (2-3 years). Consider gastroenterology referral secondary to limited bowel preparation on multiple occasions (likely defer next colonoscopy to the gastroenterology service). Complications:: No immediate Estimated blood obtained (mL): 1 Colonoscopy Component Colonoscopy Component Was a colonoscopy performed during today's procedure?: Yes Recommended follow up colonoscopy of at least 10 years?: No If no, follow up colonoscopy recommended in ___ years?: (See above) Reason for not recommending >/= 10 yr follow-up interval?: (See above)
[2024-12-14 07:40] VITALS: BP 108/69; PULSE 80; RESP 18; TEMP 36.8; O2SAT 94
[2024-12-14 07:50] VITALS: BP 108/79; PULSE 75; RESP 18; O2SAT 97
[2024-12-14 08:00] VITALS: BP 120/79; PULSE 75; RESP 18; O2SAT 93
[2024-12-14 08:10] VITALS: BP 117/71; PULSE 75; RESP 18; O2SAT 93
== END 2024-12-14 08:15 | disposition home or self-care (01) ==
PROVIDERS: PCP Family Medicine; Visit Provider Surgery
PROC: 0DJD8ZZ Inspection of Lower Intestinal Tract, Via Natural or Artificial Opening Endoscopic (ICD-10-PCS; CPT 45380; principal; 2024-12-14 07:30)
DX: K52.9 Noninfective gastroenteritis and colitis, unspecified (principal); Z12.11 Encounter for screening for malignant neoplasm of colon
CPT/HCPCS: 45380; 82962; J2704; J7120